=== PATIENT | male | born 1955 | race Caucasian/White ===

== ENCOUNTER 2020-06-01 14:47 | Inpatient (IN) | payer MEDICARE, MEDICAID, SELFPAY ==
[2020-06-01] VITALS (7 sets, daily range): BP systolic 154–163; BP diastolic 93–104; PULSE 87–103; RESP 16–20; TEMP 36.9–38.2; O2SAT 95–99; BMI 27.3
--- NOTE | 2020-06-01 16:04 | ECG_ITS ---
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 Measurements Intervals Kimberly Rate: 94 P: 66 KS: 207 QRS: 38 QRSD: 104 T: 60 QT: 300 QTc: 376 Interpretive Statements SINUS RHYTHM POSSIBLE LEFT ATRIAL ENLARGEMENT [-0.1mV P WAVE IN V1/V2] NONSPECIFIC T-WAVE ABNORMALITY Compared to ECG 03/03/2015 13:10:12 No significant changes Electronically Signed On 06-01-2020 20:09:50 CDT by Eldon Robins M.D. [id number]
--- NOTE | 2020-06-01 16:05 | W.ED.ABDPA2 ---
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 He has a history of gall bladder disease. He denies fever but has a low grade fever today. He is here to be evaluated for the pain. MD elicited complaint: abdominal pain Pertinent past history: other (gall bladder disease) Onset (ago): hour(s) (4) Pain Consistency: constant Location: Chest and RUQ Severity: severe Quality: sharp Radiation: RUQ Exacerbating factors: nothing Relieving factors: nothing Associated Symptoms: Reports nausea; Denies anorexia, belching, bloating, change in bowel habits, change in stool character, chills, coffee ground emesis, constipation, GI cramping, diarrhea, dyspepsia, dysuria, excessive flatus, fever(s), heartburn, hematochezia, hematuria, hematemesis, fecal incontinence, loose stools, melena, poor appetite, syncope and vomiting Review of Systems General: Reports: 10 or more systems reviewed and unremarkable except in HPI and below Const: Denies: fever(s) or chills Card: Denies: syncope GI: Reports: nausea; Denies: vomiting, hematemesis, coffee ground emesis, heartburn, diarrhea, constipation, bloating, GI cramping, belching, excessive flatus, fecal incontinence, change in bowel habits, change in stool character, hematochezia or melena : Denies: dysuria or hematuria PFSH ED PFSH: Medical History DM type 2 (diabetes mellitus, type 2) GERD (gastroesophageal reflux disease) Post-traumatic organic mental disorder Schizophrenia Seizure disorder Surgical History Hx of appendectomy Family History Other No significant family history Social History Smoking and tobacco status: current every day smoker cigarettes Packs smoked per day: 0.25 Alcohol intake: former Lives independently: No Household members: other Housing: Other Details: senior living Marital status: Number of children: 2 Current occupational status: disabled Physical Exam Const: COMMON NORMALS: no acute distress, average body habitus, patient oriented x3, no limitations, healthy appearing, alert and well nourished HENMT: COMMON NORMALS: normocephalic, atraumatic and moist oral mucous membranes HEAD & SCALP: normocephalic and atraumatic Neck/C-Spine: COMMON NORMALS: no meningeal signs and no JVD Chest: COMMONS NORMALS: normal inspection of the chest and normal palpation of entire chest wall Resp: COMMON NORMALS: normal respiratory effort, No retractions, No use of accessory muscles, clear to auscultation bilaterally and percussion normal AUSCULTATION: clear to auscultation bilaterally PERCUSSION: percussion normal Cardio: COMMON NORMALS: no JVD, regular rate, regular rhythm, S1 normal heart sound present, S2 normal heart sound present, No gallops present (Cardio), No clicks present (Cardio), No murmurs present (Cardio), No rub (Cardio) and Peripheral pulses 2+ throughout RATE: regular rate RHYTHM: regular rhythm HEART SOUNDS: S1 normal heart sound present and S2 normal heart sound present PERIPHERAL PULSES: Peripheral pulses 2+ throughout GI: COMMON NORMALS: Normal to inspection, nondistended, normoactive bowel sounds present, Soft to palpation, No hepatosplenomegaly present, no masses and no bruits PALPATION: Yes Soft to palpation, Yes Tenderness to palpation present (GI) Details: RUQ and Yes No hepatosplenomegaly present Extremity: COMMON NORMALS: normal to inspection, full ROM, capillary refill normal, no calf tenderness and no pedal edema Neuro: COMMON NORMALS: patient oriented x3 SENSORIUM/ORIENTATION: Yes alert MENINGEAL SIGNS: Yes no meningeal signs Course Consultations: Consultation #1: Discussed the patient and clinical findings with Dr. Suero, surgeon and he advised that we admit the patient to the hospitalist service and he would evaluate in the hospital Time: 17:35 Consultation #2: Discussed the patient with Dr. Virgen, hospitalist and he kindly accepted the patient to his service. 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 Evaluation in the ED is consistent with acute calculous cholecystitis. He is not septic. Because of penicillin allergies, he was given IV levofloxacin and metronidazole. In the ED. He is admitted to the hospital for further evaluation by the surgeon and management. He remained stable in the ED. Lab Data: Labs: Lab Results 06/01/20 06/01/20 06/01/20 Range/Units 15:16 15:16 15:16 WBC 20.2 H (4.0-10.0) 10^3/ uL RBC 4.58 (4.1-5.3) 10^6/u L Hgb 14.4 (11.7-16.6) g/dL Hct 43.2 (42.0-52.0) % MCV 94.3 H (80-94) fL MCH 31.4 (28.0-34.0) pg MCHC 33.3 (30.0-36.0) g/dL RDW 13.2 (12.1-15.1) % Plt Count 166 (130-400) 10^3/c mm MPV 11.5 H (7.4-10.4) fL Neut % (Auto) 85.2 % Lymph % (Auto) 7.2 % Mason % (Auto) 6.3 % Eos % (Auto) 0.0 % Baso % (Auto) 0.3 % Neut # (Auto) 17.17 H (1.8-7.7) 10^3/u L Lymph # (Auto) 1.5 (0.8-4.8) 10^3/u L Mason # (Auto) 1.3 H (0.2-0.9) 10^3/u L Eos # (Auto) 0.0 (0.0-0.8) 10^3/u L Baso # (Auto) 0.1 (0.0-0.1) 10^3/u L Nucleated RBC % (a uto) 0 % Nucleated RBCs # 0.0 /100WBC PT (12.1-14.9) SECO NDS INR (0.8-1.2) APTT (23.9-36.7) SECO NDS Sodium Cancelled Potassium Cancelled Chloride Cancelled Carbon Dioxide Cancelled Anion Gap Cancelled BUN Cancelled Creatinine Cancelled GFR Calculation Cancelled Glucose Cancelled Calculated Osmolal ity Cancelled Calcium Cancelled Total Bilirubin Cancelled AST Cancelled ALT Cancelled Alkaline Phosphata se Cancelled Troponin T Baselin e Cancelled NT-Pro-B Natriuret Pep Cancelled Total Protein Cancelled Albumin Cancelled Globulin Cancelled Lipase Cancelled 06/01/20 06/01/20 06/01/20 Range/Units 16:44 16:44 16:44 WBC (4.0-10.0) 10^3/ uL RBC (4.1-5.3) 10^6/u L Hgb (11.7-16.6) g/dL Hct (42.0-52.0) % MCV (80-94) fL MCH (28.0-34.0) pg MCHC (30.0-36.0) g/dL RDW (12.1-15.1) % Plt Count (130-400) 10^3/c mm MPV (7.4-10.4) fL Neut % (Auto) % Lymph % (Auto) % Mason % (Auto) % Eos % (Auto) % Baso % (Auto) % Neut # (Auto) (1.8-7.7) 10^3/u L Lymph # (Auto) (0.8-4.8) 10^3/u L Mason # (Auto) (0.2-0.9) 10^3/u L Eos # (Auto) (0.0-0.8) 10^3/u L Baso # (Auto) (0.0-0.1) 10^3/u L Nucleated RBC % (a uto) % Nucleated RBCs # /100WBC PT 15.50 H (12.1-14.9) SECO NDS INR 1.19 (0.8-1.2) APTT 37.5 H (23.9-36.7) SECO NDS Sodium 136 Potassium 3.7 Chloride 98 Carbon Dioxide 26 Anion Gap 15.7 BUN 12 Creatinine 0.8 GFR Calculation 98.0 Glucose 133 H Calculated Osmolal ity 284 L Calcium 9.2 Total Bilirubin 0.7 AST 51 H ALT 22 Alkaline Phosphata se 85 Troponin T Baselin e 14 NT-Pro-B Natriuret Pep 907 H Total Protein 7.0 Albumin 4.3 Globulin 2.7 Lipase 12 L Imaging Data ^: CXR: Attestation: I personally reviewed and interpreted this imaging study as follows: Radiologist's impression: [address] [address] XRay Report Signed Patient: Etelvina Glasgow #: [id number] : 8Acct#:[id number] Age/Sex: 64 / MADM Date: 06/01/20 Loc: [facility] [place]/Bed: [place] Attending Dr: Tucker Virgen MD Ordering Provider/Ordering MD: Denisse Guerrero MD, [facility] Date of Service: 06/01/20 Procedure(s): XR chest 1V portable [id number] Accession Number(s): [id number] Report Number: [id number] PROCEDURE INFORMATION: Exam: XR Chest Exam date and time: 06/01/2020 4:43 PM Age: 64 years old Clinical indication: Chest pain; Additional info: Cp TECHNIQUE: Imaging protocol: XR of the chest. Views: 1 view. COMPARISON: CR Chest 1 [place] [id number] 03/03/2015 1:14 PM FINDINGS: Lungs: No significant airspace disease. Pleural spaces: Questionable small right pleural effusion. Heart/Mediastinum: Cardiac silhouette upper limits of normal in size. Diaphragm: Chronic asymmetric elevation of the right hemidiaphragm. Bones/joints: Osteopenia and degenerative change. Gastrointestinal tract: Bowel dilatation and colonic interposition. XR/XR chest 1V portable [id number] IMPRESSION: 1. Chronic asymmetric elevation of the right hemidiaphragm with questionable small right pleural effusion. 2. Bowel dilatation and colonic interposition. Dictated By:Werner Mcallister MD Signed By:Werner Mcallister MDSigned Date/Time:06/02/20708 DD/ 7 CT Abd/Pel: Attestation: I personally reviewed and interpreted this imaging study as follows: Radiologist's impression: Glad to Have You[address] [place] [address] CT Scan Report Signed Patient: Etelvina Glasgow #: [id number] : 8Acct#:[id number] Age/Sex: 64 / MADM Date: 06/01/20 Loc: [facility]/Bed: Attending Dr: Ordering Provider/Ordering MD: Denisse Guerrero MD, [facility] Date of Service: 06/01/20 Procedure(s): CT abdomen pelvis wo con [id number] Accession Number(s): [id number] Report Number: [id number] PROCEDURE INFORMATION: Exam: CT Abdomen And Pelvis Without Contrast Exam date and time: 06/01/2020 4:55 PM Age: 64 years old Clinical indication: Other: Diarrhea; Abdominal pain; Other: Central; Prior surgery; Surgery type: Appy TECHNIQUE: Imaging protocol: Computed tomography of the abdomen and pelvis without contrast. Radiation optimization: All CT scans at this facility use at least one of these dose optimization techniques: automated exposure control; mA and/or kV adjustment per patient size (includes targeted exams where dose is matched to clinical indication); or iterative reconstruction. COMPARISON: No relevant prior studies available. RADIATION DOSE METRICS: Total DLP (mGy-cm): 1321.43 FINDINGS: Limitations: The absence of intravenous contrast lessens the sensitivity of this study for solid organ abnormalities. Lungs: There is mild dependent atelectasis at the right lung base. Pleural spaces: There is a small right pleural effusion. Liver: There is no focal abnormality within the liver. Gallbladder and bile ducts: Multiple calcified gallstones are present. There is moderate gallbladder wall thickening and there is pericholecystic stranding which suggests possibility of acute cholecystitis. Correlation with clinical findings is suggested. Pancreas: The pancreas is normal. Spleen: The spleen is normal. Adrenal glands: The adrenal glands are normal. Kidneys and ureters: The kidneys are normal. There is no evidence of hydronephrosis. There is no evidence of renal or ureteral calcifications. Stomach and bowel: There is no evidence of colitis/diverticulitis. Appendix: Not identified Intraperitoneal space: There is some minimal free fluid in the cul-de-sac. Retroperitoneal space: There is some minimal fluid along Gerota's fascia on the right and in the right pericolic gutter. Vasculature: There is mild atherosclerotic calcification of the coronary arteries. The aorta demonstrates mild atherosclerotic calcification. There is no evidence of an abdominal aortic aneurysm. Lymph nodes: Unremarkable. No enlarged lymph nodes. Urinary bladder: Unremarkable as visualized. Reproductive: Unremarkable as visualized. Bones/joints: There is focal sclerotic focus in the left inferior pubic ramus, likely a benign bone island. Soft tissues: There is right inguinal hernia containing only fat CT/CT abdomen pelvis wo con [id number] IMPRESSION: Cholelithiasis and acute cholecystitis. Radiation Dose CTDIVOL = (mGy): DLP = 1321.43 (mGy-cm) Dictated By:Humberto Andrea Signed By:Wong Andreaigned Date/Time:06/01/201719 DD/ 1719 EKG Data ^: EKG 1: Attestation: I personally reviewed and interpreted this EKG as follows: EKG interpretation date: 06/01/20 EKG interpretation time: 16:28 Prior EKG tracings: not available for review Interpretation: sinus rhythm HR [address] changes EKG 2: Attestation: I personally reviewed and interpreted this EKG as follows: EKG interpretation date: 06/01/20 EKG interpretation time: 18:32 Prior EKG tracings: available for review Interpretation: sinus rhythm HR [address] changes No significant changes from earlier today. Discharge Plan Discharge Patient Disposition: Admitted As Inpatient Admit Provider: Tucker Virgen Clinical Impression: Acute calculous cholecystitis Condition: Stable Discharge Orders: Discharge Order (Routine); Ordered 06/04/20 Ordered By: Tucker Virgen Discharge Diet: Advance as tolerated, Diabetic, Low Fat and Full LIquid Coding Level of Care Code ED Monotype Setter for [facility] Kelle
[2020-06-01 16:12] LABS: Basophils # 0.1 10^3/uL (0.0-0.1); Basophils % 0.3 %; Hematocrit 43.2 % (42.0-52.0); Hemoglobin 14.4 g/dL (11.7-16.6); Lymphocytes # 1.5 10^3/uL (0.8-4.8); Lymphocytes % 7.2 %; Mean Corpuscular HGB Conc 33.3 g/dL (30.0-36.0); Mean Corpuscular Hemoglobin 31.4 pg (28.0-34.0); Mean Corpuscular Volume 94.3 fL (80-94); Mean Platelet Volume 11.5 fL (7.4-10.4); Monocytes # 1.3 10^3/uL (0.2-0.9); Monocytes % 6.3 %; Neutrophils # 17.17 10^3/uL (1.8-7.7); Neutrophils % 85.2 %; Nucleated Red Blood Cells % 0 %; Platelet Count 166 10^3/cmm (130-400); Red Blood Count 4.58 10^6/uL (4.1-5.3); Red Cell Distribution Width 13.2 % (12.1-15.1); White Blood Count 20.2 10^3/uL (4.0-10.0)
--- NOTE | 2020-06-01 16:22 | PC.PHAR ---
medication entered is from pts mar printed on 05/13/20-called [facility] [employer] [phone] [employer] to verify dose and times given no answer
--- NOTE | 2020-06-01 16:45 | CTR_ITS ---
PROCEDURE INFORMATION: Exam: CT Abdomen And Pelvis Without Contrast Exam date and time: 06/01/2020 4:55 PM Age: 64 years old Clinical indication: Other: Diarrhea; Abdominal pain; Other: Central; Prior surgery; Surgery type: Appy TECHNIQUE: Imaging protocol: Computed tomography of the abdomen and pelvis without contrast. Radiation optimization: All CT scans at this facility use at least one of these dose optimization techniques: automated exposure control; mA and/or kV adjustment per patient size (includes targeted exams where dose is matched to clinical indication); or iterative reconstruction. COMPARISON: No relevant prior studies available. RADIATION DOSE METRICS: Total DLP (mGy-cm): 1321.43 FINDINGS: Limitations: The absence of intravenous contrast lessens the sensitivity of this study for solid organ abnormalities. Lungs: There is mild dependent atelectasis at the right lung base. Pleural spaces: There is a small right pleural effusion. Liver: There is no focal abnormality within the liver. Gallbladder and bile ducts: Multiple calcified gallstones are present. There is moderate gallbladder wall thickening and there is pericholecystic stranding which suggests possibility of acute cholecystitis. Correlation with clinical findings is suggested. Pancreas: The pancreas is normal. Spleen: The spleen is normal. Adrenal glands: The adrenal glands are normal. Kidneys and ureters: The kidneys are normal. There is no evidence of hydronephrosis. There is no evidence of renal or ureteral calcifications. Stomach and bowel: There is no evidence of colitis/diverticulitis. Appendix: Not identified Intraperitoneal space: There is some minimal free fluid in the cul-de-sac. Retroperitoneal space: There is some minimal fluid along Gerota's fascia on the right and in the right pericolic gutter. Vasculature: There is mild atherosclerotic calcification of the coronary arteries. The aorta demonstrates mild atherosclerotic calcification. There is no evidence of an abdominal aortic aneurysm. Lymph nodes: Unremarkable. No enlarged lymph nodes. Urinary bladder: Unremarkable as visualized. Reproductive: Unremarkable as visualized. Bones/joints: There is focal sclerotic focus in the left inferior pubic ramus, likely a benign bone island. Soft tissues: There is right inguinal hernia containing only fat CT/CT abdomen pelvis wo con [id number] IMPRESSION: Cholelithiasis and acute cholecystitis. Radiation Dose CTDIVOL = (mGy): DLP = 1321.43 (mGy-cm)
[2020-06-01] MEDS: metroNIDAZOLE IV 500 MG/100 ML PREMIX 100 MG IV (17:36)
[2020-06-01 17:39] LABS: Troponin(5th) Baseline 14 ng/L (0-15)
[2020-06-01 17:40] LABS: Alanine Aminotransferase 22 U/L (0-41); Albumin Level 4.3 g/dL (3.5-5.2); Alkaline Phosphatase 85 IU/L (40-130); Anion Gap 15.7 (5-19); Aspartate Amino Transferase 51 U/L (0-40); Blood Urea Nitrogen 12 mg/dL (8-23); Calcium 9.2 mg/dL (8.5-10.5); Carbon Dioxide 26 mmol/L (22-29); Chloride 98 mmol/L (98-107); Globulin 2.7 g/dL (1.3-4.6); Glucose 133 mg/dL (65-115); Lipase 12 U/L (13-60); NT Pro B Type Natriuretic Pept 907 pg/mL (0-125); Osmolality Calculated 284 mOsm/kg (285-295); Potassium 3.7 mmol/L (3.5-5.1); Sodium 136 mmol/L (136-145); Total Bilirubin 0.7 mg/dL (0.15-1.2)
[2020-06-01] MEDS: levofloxacin-dextrose 5 % 750 MG/150 ML PREMIX 100 MG IV (17:44)
--- NOTE | 2020-06-01 18:04 | ECG_ITS ---
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 Measurements Intervals Mellen Rate: 98 P: 58 MI: 184 QRS: 34 QRSD: 93 T: 64 QT: 332 QTc: 425 Interpretive Statements SINUS RHYTHM WITH SINUS ARRHYTHMIA NONSPECIFIC T-WAVE ABNORMALITY Compared to ECG 06/01/2020 16:28:18 No significant changes Electronically Signed On 06-01-2020 20:13:33 CDT by Eldon Robins M.D. [id number]
--- NOTE | 2020-06-01 18:29 | P.CONIM_ITS ---
Providers/Reason For Consult Consulting Physican/Specialty*: Alfonso Suero MD Reason for Consult*: Acute cholecystitis Requesting Physcian: Dr. Guerrero Primary Care Provider: Sourav Weiss MD History of Present Illness History of Present Illness Chief Complaint: My chest hurts History of present illness: This is a pleasant 64 years old gentleman with associated medical comorbidities with history of diabetes mellitus type II, epilepsy, hyperlipidemia,GERD and schizophrenia. Presents to the emergency department with worsening chest pain and some discomfort towards the right side of the abdomen over the past 3 days or so. Limited history taking from the patient yet patient denies any other constitutional symptoms at the moment, further work-up in the emergency department showed that the patient does have an acute calculus cholecystitis CT scan findings Gallbladder and bile ducts: Multiple calcified gallstones are present. There is moderate gallbladder wall thickening and there is pericholecystic stranding which suggests possibility of acute cholecystitis On blood work patient was found to have leukocytosis of 20,000 and normal bilirubin. On further evaluation the emergency department room #2 patient overall started feeling better,Fever has been reported to be 100.8. General surgery was consulted for further evaluation and potential intervention Review of Systems General: Reports: 10 or more systems reviewed and unremarkable except in HPI and below Meds/Allergies Home Medications and Allergies Home Medications Medication Instructions Recorded Confirmed Last Taken Type albuterol sulfate [Ventolin HFA] 2 puff INHALATION Q6H PRN 06/01/20 06/01/20 Unknown History ascorbic acid (vitamin C) [Vitamin 500 mg PO PRN 06/01/20 06/01/20 Unknown History C] atorvastatin 10 mg PO DAILY@06/01/20 06/01/20 Unknown History dextromethorphan-guaifenesin 5 ml PO . DIRECTED PRN 06/01/20 06/01/20 Unknown History [Robafen DM] diphenhydramine HCl [Banophen] 25 mg PO Q6H PRN 06/01/20 06/01/20 Unknown History lamotrigine 150 mg PO BID@,06/01/20 06/01/20 Unknown History loratadine 10 mg PO DAILY@08 06/01/20 06/01/20 Unknown History metformin 1,000 mg PO BID@,06/01/20 06/01/20 Unknown History metoprolol tartrate 50 mg PO BID@06/01/20 06/01/20 Unknown History omega-3 fatty acids-vitamin E 1 cap PO BID@06/01/20 06/01/20 Unknown History [Fish Oil] pantoprazole 40 mg PO DAILY@06/01/20 06/01/20 Unknown History paroxetine HCl 40 mg PO DAILY@06/01/20 06/01/20 Unknown History quetiapine 25 mg PO DAILY@06/01/20 06/01/20 Unknown History quetiapine 300 mg PO DAILY@06/01/20 06/01/20 Unknown History sitagliptin [Januvia] 50 mg PO DAILY@06/01/20 06/01/20 Unknown History Allergies Allergy/AdvReac Type Severity Reaction Status Date / Time Penicillins Allergy ALGY-Rash Verified 06/01/20 18:34 Current Medications Current Medications Generic Name Dose Route Start Last Admin Trade Name Freq PRN Reason Stop Dose Admin Levofloxacin/Dextrose 750 mg in 150 mls @ 100 mls/hr 06/01/20 17:25 06/01/20 17:44 Levaquin-D5w IV 06/01/20 18:54 100 mls/hr ONCE ONE Administration Protocol PFSH Acute PFSH: Medical History DM type 2 (diabetes mellitus, type 2) GERD (gastroesophageal reflux disease) Post-traumatic organic mental disorder Schizophrenia Seizure disorder Surgical History Hx of appendectomy Family History Other No significant family history Social History Smoking and tobacco status: current every day smoker cigarettes Packs smoked per day: 0.25 Alcohol intake: former Substance/Drug Use: never Lives independently: No Household members: other Housing: Other Details: detention Marital status: Number of children: 2 Current occupational status: disabled Vitals/I&O/Wt Last Vital Signs Temp 100.8 F H 06/01/20 15:24 Pulse 103 H 06/01/20 18:04 Resp 16 06/01/20 18:04 BP 156/104 06/01/20 18:04 Pulse Ox 97 06/01/20 18:04 Weight last 48 hrs Weight 175 lb Physical Exam Narrative: EXAM NARRATIVE: Patient is conscious alert oriented X3 BMI 27.4 Head and neck examination PERRLA no masses no cervical lymphadenopathy no jaundice Cardiac examination audible S1-S2 no murmurs no gallops no arrhythmias Chest is clear bilateral,abscence of Rhonchi or wheezes,no surgical emphysema Abdomen nontender Except on deep palpation of the right upper quadrant nondistended soft no organomegaly guarding or rigidity/no signs of peritonitis Extremities no cyanosis no clubbing no edema A&P Assessment and plan (1) Acute calculous cholecystitis: After history taking physical examination and reviewing the chart and images with my personal interpretation of the CT scan of the abdomen and pelvis I did discuss with the patient the following potential options; 1-Laparoscopic cholecystectomy possible open with a higher chance of conversion to open giving the fact that the patient had passed 48 to 72 hours of his symptoms with the potential increased risk of biliary injury and conversion to open. 2-Conservative measures in the form of broad-spectrum IV antibiotics and follow on clinical progress 3-Image guided cholecystostomy tube placement with the plan for interval cholecystectomy in 4 to 6 weeks We will continue coordinating care with Dr. Virgen and follow on the patient's clinical progress and follow on the a.m. labs Apparently the patient does have a power of shoe dresser as Dr. Virgen just informed me and we would be reaching out to clarify the picture and help in the decision making for the patient's best interest.We will follow on the ultrasound imaging studies and will order coags in case that image guided interventional radiology is decided upon. Thank you for consulting general surgery to participate taking care Status: Acute Consult Attestations Medical Necessity Statement: Inpatient hospitalization for IV fluid resuscitation, broad-spectrum antibiotics and potential intervention Time Spent in Patient Care: (>than 50% of time spent in counselling and/or direct pt care on unit) . 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
[2020-06-01 19:15] LABS: Lactate (Lactic Acid level) 1.5 mmol/L (0.5-2.2)
--- NOTE | 2020-06-01 19:15 | P.HP_ITS ---
Providers/Chief Complaint Admitting Physician: Tucker Virgen Primary Care Provider: Sourav Weiss MD Chief Complaint: RUQ PAIN History of Present Illness Pleasant 64-year-old gentleman with history of seizure disorder, posttraumatic organic affective disorder, schizophrenia, unstoppable social situations, diabetes, GERD, current smoker is brought over from [facility] where he is a long-term resident under guardianship of Mr. Darren Boyd, due to complaint of 3 days of worsening upper abdominal/lower chest pain, more in the right, but also on the left, nausea, episodes of vomiting, poor oral intake. He states that he did receive his morning medications today. In ER he is noted with low-grade fever, temperature 100.8, leukocytosis, 20.2, mostly neutrophilic, with sinus ta chycardia, 99, BP 159/93, respirate 18, saturation 95% on room air. Metabolic panel mostly unremarkable apart from glucose 133, AST 51, BNP 907. Lipase is low at 12. First troponin is 14. EKG with sinus tachycardia, nonspecific changes. CT abdomen pelvis shows cholelithiasis and acute cholecystitis. Right upper quadrant ultrasound is pending. In ER he has had ordered a dose of Levaquin and Flagyl. Surgery is consulted. He himself is currently feeling a little bit better. Pain at rest appears to have abated. mill tender second operator on palpation, however. Denies chest pain or pressure. Denies diarrhea or abdominal pain elsewhere. He seems to have somewhat limited understanding as to the findings so far. He tells me he lives in the correction setting with a roommate. He dresses, ambulates, feeds himself unassisted. [facility] staff notes that he otherwise has been at baseline state of health. Highest temperature today head was 99.5. At the facility CODE STATUS is listed as full code. Review of Systems Const: Reports: change in appetite; Denies: fever(s), chills, body aches or malaise Eyes: Denies: change in vision or eye redness ENMT: Denies: throat pain, oral sores or ear or mastoid pain Card: Denies: chest pain, edema, pre-syncope or dyspnea on exertion Resp: Denies: dyspnea, productive cough, change in phlegm color or hemoptysis GI: Reports: abdominal pain, nausea and vomiting; Denies: diarrhea, constipation, hematochezia or melena : Denies: flank pain, difficulty urinating, urinary frequency or hematuria Musc: Denies: back pain, joint swelling or joint redness Skin/Breast: Denies: rash, sores or new lesions Neuro: Denies: headache(s), numbness in extremities, weakness in extremities, dizziness, confusion or seizure-like activity Endo: Denies: polyuria or polydipsia Oj/Lymph: Denies: easy bleeding or purpura All/Imm: Denies: urticaria, throat swelling or tongue swelling Medications/Allergies Home Medications Medication Instructions Recorded Confirmed Last Taken Type albuterol sulfate [Ventolin HFA] 2 puff INHALATION Q6H PRN 06/01/20 06/01/20 Unknown History ascorbic acid (vitamin C) [Vitamin 500 mg PO PRN 06/01/20 06/01/20 Unknown History C] atorvastatin 10 mg PO DAILY@06/01/20 06/01/20 Unknown History dextromethorphan-guaifenesin 5 ml PO . DIRECTED PRN 06/01/20 06/01/20 Unknown History [Robafen DM] diphenhydramine HCl [Banophen] 25 mg PO Q6H PRN 06/01/20 06/01/20 Unknown History lamotrigine 150 mg PO BID@06/01/20 06/01/20 Unknown History loratadine 10 mg PO DAILY@06/01/20 06/01/20 Unknown History metformin 1,000 mg PO BID@06/01/20 06/01/20 Unknown History metoprolol tartrate 50 mg PO BID@06/01/20 06/01/20 Unknown History omega-3 fatty acids-vitamin E 1 cap PO BID@06/01/20 06/01/20 Unknown History [Fish Oil] pantoprazole 40 mg PO DAILY@06/01/20 06/01/20 Unknown History paroxetine HCl 40 mg PO DAILY@06/01/20 06/01/20 Unknown History quetiapine 25 mg PO DAILY@06/01/20 06/01/20 Unknown History quetiapine 300 mg PO DAILY@06/01/20 06/01/20 Unknown History sitagliptin [Januvia] 50 mg PO DAILY@06 06/01/20 06/01/20 Unknown History Allergies Allergy/AdvReac Type Severity Reaction Status Date / Time Penicillins Allergy ALGY-Rash Verified 06/01/20 18:34 PFSH Acute PFSH: Medical History DM type 2 (diabetes mellitus, type 2) GERD (gastroesophageal reflux disease) Post-traumatic organic mental disorder Schizophrenia Seizure disorder Surgical History Hx of appendectomy Family History Other No significant family history Social History Smoking and tobacco status: current every day smoker cigarettes Packs smoked per day: 0.25 Alcohol intake: former Substance/Drug Use: never Lives independently: No Household members: other Housing: Other Details: [facility] Marital status: Number of children: 2 Current occupational status: disabled Vitals/I&O/Wt Last Vital Signs Temp 100.8 F H 06/01/20 15:24 Pulse 99 06/01/20 19:07 Resp 18 06/01/20 19:07 BP 159/93 06/01/20 19:07 Pulse Ox 95 06/01/20 19:07 06/01/20 06/01/20 06/01/20 06:59 14:59 22:59 Intake Total 100 / 100 Balance 100 / 100 Weight last 48 hrs Weight 79.379 kg Physical Exam Const: COMMON NORMALS: no acute distress, patient oriented x3 and alert GENERAL APPEARANCE: cooperative ORIENTATION/CONSCIOUSNESS: Yes awake OTHER: Does not have good insight or understanding as to what is causing his symptoms despite discussion with ER physician and surgeon. Discussed with him again regarding clinical and imaging findings. HENMT: COMMON NORMALS: oropharynx normal Neck/C-Spine: COMMON NORMALS: no JVD Resp: COMMON NORMALS: normal respiratory effort and clear to auscultation bilaterally AUSCULTATION: clear to auscultation bilaterally Cardio: COMMON NORMALS: no JVD, regular rhythm, S1 normal heart sound present, S2 normal heart sound present and No murmurs present (Cardio) RHYTHM: regular rhythm HEART SOUNDS: S1 normal heart sound present and S2 normal heart sound present GI: COMMON NORMALS: Normal to inspection, nondistended, normoactive bowel sounds present and Soft to palpation PALPATION: Yes Soft to palpation and Yes Tenderness to palpation present (GI) (RUQ>LUQ) Extremity: COMMON NORMALS: no joint enlargement and no pedal edema Neuro: COMMON NORMALS: patient oriented x3 and moves all extremities Skin: COMMON NORMALS: no rashes or lesions noted GENERAL SKIN EXAM: no rashes or lesions noted Data : 06/01/20 15:16 06/01/20 16:44 Micro: Microbiology 06/01/20 18:40 Blood Culture - Preliminary Blood SPECIMEN COLLECTED 06/01/20 18:45 Blood Culture - Preliminary Blood SPECIMEN COLLECTED A&P Assessment and plan (1) Acute calculous cholecystitis: Discussed with him as well as his guardian. Discussed with surgery. Continue to biotics at this time. Reassess in the morning with regards to additional steps and timing of possible surgery. Complete troponin and EKG series. Lower chest discomfort appears to be referred pain, so far troponin is normal. Tenderness mostly focusing in the right upper quadrant. Possibly some discomfort from vomiting. Concomitant sepsis with leukocytosis, sinus tachycardia, low-grade fever. Follow blood cultures. Cholangitis considered, does not appear to have acute cholangitis at this time. Follow up RUQ US. Gentle IV hydration, although cautiously as his BNP is elevated, although clinically does not appear fluid overloaded at this time. Status: Acute Additional A&P Information Smoking addiction: Encourage cessation. Nicotine patch. Seizure disorder: Continue medications Posttraumatic affective organic disorder Schizophrenia Unstoppable social situations: [facility] denies any agitated, aggressive or any violent behavior. Diabetes: Sliding scale insulin, hold oral hypoglycemics for now. Attestations Medical Necessity Statement*: Admission of over 2 midnights is going to be needed versus management of acute cholecystitis, sepsis. Coding Level of Care Code Acute Pipe Fitter Marine for [facility] Diagnoses Acute calculous cholecystitis K80.00
[2020-06-01 19:16] LABS: Troponin 5 2HR 13.57 ng/L (0-15)
[2020-06-01 19:17] LABS: Troponin 5 2HR Delta -0.43 ABS# (0-10)
[2020-06-01 19:23] LABS: INR 1.19 (0.8-1.2)
[2020-06-01 19:24] LABS: Partial Thromboplastin Time 37.5 SECONDS (23.9-36.7)
[2020-06-01 19:50] LABS: Add Urine Microscopic? YES; Bilirubin Urine 1+ (Negative); Blood Urine 2+ (Negative); Glucose Urine UA Norm (Normal); Ketones Urine 1+ (Negative); Leukocyte Esterase Urine Negative (Negative); Nitrate Urine Negative (Negative); Protein Urine 2+ (Negative); Urine Appearance Clear (CLEAR); Urine Color Dark Yellow (Yellow); Urobilinogen Urine 1 mg/dL (Negative); pH Urine 7 (5-7)
[2020-06-01 19:52] LABS: Add Urine Culture? Yes; Bacteria Urine TRACE /hpf; Hyaline Casts Urine 0-4 /lpf; RBC Urine 25-40 /hpf (0-2); Squamous Epithelial Cell Urine 0-4 /hpf (0-5); WBC Urine 0-4 /hpf (0-5)
[2020-06-01] MEDS: nicotine 14 mg Patch 1 PATCH TRANSDERMA (21:31)
[2020-06-01] MEDS: lamoTRIgine 100 mg Tablet 150 MG PO (21:32)
[2020-06-01] MEDS: PARoxetine 20 mg Tablet 40 MG PO (21:32)
[2020-06-01] MEDS: metoprolol tartrate 50 mg Tablet PO (21:33)
[2020-06-01] MEDS: heparin 5,000 unit/mL INJ 1 mL 5000 UNIT SUBCUT (21:33)
[2020-06-01] MEDS: famotidine 20 mg/2 mL INJ IVP (21:34)
[2020-06-01] MEDS: lactated ringers 1,000 ML 75 ML IV (21:44)
[2020-06-01 22:54] LABS: Troponin 5 6HR 17.05 ng/L (0-15); Troponin 5 6HR Delta 3.05 ng/L (0-12)
[2020-06-02] VITALS (10 sets, daily range): BP systolic 130–153; BP diastolic 78–89; PULSE 75–96; RESP 16–18; TEMP 36.5–37.1; O2SAT 95–99
[2020-06-02] MEDS: metroNIDAZOLE IV 500 MG/100 ML PREMIX 100 MG IV ×3 (01:35→18:06)
--- NOTE | 2020-06-02 05:52 | P.PN_ITS ---
Subjective Subjective: Interval history: Per nursing report patient had adequate urine output and overall had a good night. No acute events overnight. Patient when asked he reports that he feels well and denies abdominal pain. Ultrasound bedside was just done, concern about soft tissue shadow in the gallbladder, pending final report. Medications: Reviewed: Yes Vitals/I&O/Wt Last Vital Signs Temp 97.7 F 06/02/20 03:37 Pulse 83 06/02/20 03:37 Resp 18 06/02/20 03:37 BP 145/89 06/02/20 03:37 Pulse Ox 96 06/02/20 03:37 06/01/20 06/01/20 06/02/20 14:59 22:59 06:59 Intake Total 100 / 100 150 / 250 Output Total 925 / 925 Balance 100 / 100 -775 / -675 Weight last 48 hrs Weight 164 lb 12.8 oz Weight 175 lb Physical Exam Narrative: EXAM NARRATIVE: Patient is conscious alert oriented X3 BMI 26 Head and neck examination PERRLA no masses no cervical lymphadenopathy no jaundice Cardiac examination audible S1-S2 no murmurs no gallops no arrhythmias Chest is clear bilateral,abscence of Rhonchi or wheezes,no surgical emphysema Abdomen nontender nondistended soft no organomegaly guarding or rigidity/no signs of peritonitis Extremities no cyanosis no clubbing no edema Data : 06/01/20 15:16 06/01/20 16:44 Micro: Microbiology 06/01/20 18:40 Blood Culture - Preliminary Blood SPECIMEN COLLECTED 06/01/20 18:45 Blood Culture - Preliminary Blood SPECIMEN COLLECTED A&P Assessment and plan (1) Acute calculous cholecystitis: Continue parenteral antimicrobial therapy Will follow on ultrasound final report if there is a potential concern about the soft tissue shadow that may raise suspicious of a neoplasm MRCP would be warranted Will Continue to follow on patient's clinical progress, seems to be responding well to conservative measures for now. We will follow on a.m. lab Thank you for consulting general surgery to participate taking care Status: Acute Attestations Medical Necessity Statement*: Continue inpatient hospitalization for ongoing medical management and antimicrobial therapy and potential surgical intervention Time Spent in Patient Care: (>than 50% of time spent in counselling and/or direct pt care on unit) . Coding Level of Care Code Acute Formal Service Waiter for [facility] Diagnoses Acute calculous cholecystitis K80.00
--- NOTE | 2020-06-02 06:00 | US_ITS ---
WS: [id number] RIGHT UPPER QUADRANT ULTRASOUND HISTORY: cholecystitis COMPARISON: CT 06/01/2020 Liver: 19.5 cm in length. Liver is moderately enlarged and poorly visualized. Diffuse mild hepatic st eatosis. No bile duct dilatation. Gallbladder: Gallbladder is normal. There is diffuse mild bladder wall thickening measuring up to 8 m m in diameter. Soft tissue adherent to the nondependent gallbladder wall measures 1.9 cm in diameter. No shadowing. There is a small amount of adjacent fluid. There is a stone present in the gallbladder . CBD: 0.6 cm Pancreas: Not visualized. Right kidney: 11.3 cm in length. Normal size and echogenicity. No hydronephrosis or mass. Aorta and IVC: Not visualized. No ascites. US/US gall bladder [id number] IMPRESSION: 1. Abnormal gallbladder. Gallbladder is contracted with diffuse wall thickenin g. Stones and tumefactive sludge are present. Findings are consistent with acut e cholecystitis. Compared to the CT from 06/01/2020 the gallbladder now appears partially contracted. 2. No bile duct dilatation.
[2020-06-02 06:21] LABS: Basophils % 0.2 %; Eosinophils # 0.1 10^3/uL (0.0-0.8); Eosinophils % 0.4 %; Hematocrit 41.3 % (42.0-52.0); Hemoglobin 13.5 g/dL (11.7-16.6); Lymphocytes # 1.6 10^3/uL (0.8-4.8); Lymphocytes % 11.5 %; Mean Corpuscular HGB Conc 32.7 g/dL (30.0-36.0); Mean Corpuscular Hemoglobin 31.8 pg (28.0-34.0); Mean Corpuscular Volume 97.4 fL (80-94); Mean Platelet Volume 10.1 fL (7.4-10.4); Monocytes % 7.1 %; Neutrophils # 11.47 10^3/uL (1.8-7.7); Neutrophils % 80.4 %; Nucleated Red Blood Cells % 0 %; Platelet Count 169 10^3/cmm (130-400); Red Blood Count 4.24 10^6/uL (4.1-5.3); Red Cell Distribution Width 13.2 % (12.1-15.1); White Blood Count 14.3 10^3/uL (4.0-10.0)
[2020-06-02 06:41] LABS: Alanine Aminotransferase 19 U/L (0-41); Albumin Level 3.8 g/dL (3.5-5.2); Alkaline Phosphatase 80 IU/L (40-130); Aspartate Amino Transferase 34 U/L (0-40); Blood Urea Nitrogen 10 mg/dL (8-23); Carbon Dioxide 28 mmol/L (22-29); Chloride 100 mmol/L (98-107); Globulin 3.1 g/dL (1.3-4.6); Glomerular Filtration Rate 114.3 mL/min (90-130); Glucose 102 mg/dL (65-115); Osmolality Calculated 285 mOsm/kg (285-295); Sodium 138 mmol/L (136-145); Total Bilirubin 0.7 mg/dL (0.15-1.2); Total Protein 6.9 g/dL (6.6-8.7)
[2020-06-02] MEDS: metoprolol tartrate 50 mg Tablet PO ×2 (08:41→20:29)
[2020-06-02] MEDS: lamoTRIgine 100 mg Tablet 150 MG PO ×2 (08:41→20:30)
[2020-06-02] MEDS: famotidine 20 mg/2 mL INJ IVP ×2 (08:50→20:30)
--- NOTE | 2020-06-02 08:52 | PC.NURSE ---
patient had pack of cigars in shirt pocket and manager video games in pants pocket. Electrolysis Engineer explained that we need to lock them up in pyxis and we will return them to him on discharge. patient agreed and handed them to singer songwriter. singer songwriter labeled them and placed them in the pyxis.
[2020-06-02] MEDS: lactated ringers 1,000 ML 75 ML IV (10:44)
--- NOTE | 2020-06-02 11:03 | PC.CHAP ---
Pastoral Care Encounter/Spiritual Assessment Type of Contact [] Declined core stacker visit [] Patient/Family/Request visit [] Outpatient visit [] Follow-up visit [] Physician referral [] Code/Alert [x] Routine visit [] Staff referral [] Actively dying [] Patient sleeping [] Family support [] [] Out of room [] Palliative care [] [x] Receiving care in room [] Pre-surgical visit [] Trauma [] Long length of stay [] ICU visit [] Other: Relational/Emotional Strength [] Patient feels connected with others/family/visitors/staff [] Distress [] Loneliness/isolation [] Abandonment Spirituality of Patient [x] Person of Casie [] Attends Voodoo of their Casie [x] Believes in Prayer [] Reads Bible or Scientologist materials [] There are Spiritual issues to be addressed Freezer Unloader Interventions [] Prayer [] Active listening [] Non-anxious presence [] Spiritual/emotional support [] Crisis/trauma care [] Spiritual counseling [] Bereavement support [] Provided bereavement packet [] Provided Bible/devotional materials [] Provided toy/stuffed animal, coloring book to patient or family member [] Provided Communion [] Anointing/[place] [] Salvation [] Completed spiritual assessment [] Other: Impact on Illness or Injury [] Angry [] Fearful [] Anxious [] Often cries [] Exhaustion [] Unable to work [] Unable to attend faith [] Unable to walk/stand [] Unable to read [] Unable to drive [] Unable to eat/drink [] Unable to sleep [] Unable to be with family [] Patient intubated [] Other: Summary Feels strong, happy. Was alert and ready to visit. Time spent with patient 3 minutes
--- NOTE | 2020-06-02 14:45 | PC.NURSE ---
Rcvd verbal order from Dr Suero for clear liquid diet. teletypewriter installer put order in.
--- NOTE | 2020-06-02 15:25 | PC.NURSE ---
Rcvd call from Saad AGUILA stating [facility] would like patient to have Covid test done prior to returning home. Saad is putting order in for Covid. Software Engineer Sales will collect test.
[2020-06-02 16:59] LABS: SARS Covid-2 Antigen Negative (Negative)
[2020-06-02] MEDS: levofloxacin-dextrose 5 % 750 MG/150 ML PREMIX 100 MG IV (18:05)
--- NOTE | 2020-06-02 18:21 | P.PN_ITS ---
Subjective Subjective: Interval history: This morning when I was seeing him he was doing all right. Lynn he could eat. Denied pain or discomfort. Abdominal pain had improved. Denies trouble breathing or chest pain. Vitals/I&O/Wt Last Vital Signs Temp 98.1 F 06/02/20 15:15 Pulse 82 06/02/20 15:15 Resp 18 06/02/20 15:15 BP 136/87 06/02/20 15:15 Pulse Ox 99 06/02/20 15:15 06/02/20 06/02/20 06/02/20 06:59 14:59 22:59 Intake Total 150 / 250 5 / 1175 0 2014 Output Total 925 / 925 Balance -775 / -675 1175 / 1175 840 2014 Weight last 48 hrs Weight 74.752 kg Weight 79.379 kg Physical Exam Const: COMMON NORMALS: no acute distress and alert GENERAL APPEARANCE: cooperative and comfortable ORIENTATION/CONSCIOUSNESS: Yes awake HENMT: COMMON NORMALS: oropharynx normal Neck/C-Spine: COMMON NORMALS: no JVD Resp: COMMON NORMALS: normal respiratory effort and clear to auscultation jose aterally AUSCULTATION: clear to auscultation bilaterally Cardio: COMMON NORMALS: no JVD, regular rhythm, S1 normal heart sound present, S2 normal heart sound present and No murmurs present (Cardio) RHYTHM: regular rhythm HEART SOUNDS: S1 normal heart sound present and S2 normal heart sound present GI: COMMON NORMALS: Normal to inspection, nondistended, normoactive bowel sounds present and Soft to palpation PALPATION: Yes Soft to palpation and Yes Tenderness to palpation present (GI) (Much better. Nearly resolved right upper quadrant tenderness.) Extremity: COMMON NORMALS: no joint enlargement and no pedal edema Neuro: COMMON NORMALS: moves all extremities SENSORIUM/ORIENTATION: Yes alert Skin: COMMON NORMALS: no rashes or lesions noted GENERAL SKIN EXAM: no rashes or lesions noted Data : 06/02/20 06:02 06/02/20 06:02 Micro: Microbiology 06/01/20 18:40 Blood Culture - Preliminary Blood SPECIMEN COLLECTED 06/01/20 18:45 Blood Culture - Preliminary Blood SPECIMEN COLLECTED A&P Assessment and plan (1) Acute calculous cholecystitis: Surgical reassessment appreciated. Overall he is doing better today. Possible sepsis improved. Fever so far abated. Leukocytosis down to 14.3. He is feeling better. He is willing to trial clear liquids as discussed with surgery. Continue antibiotics at this time. Reassess again tomorrow. RUQ US with noted abnormal gallbladder, gallbladder now appears contracted. Acute cholecystitis. Hold additional IV hydration for now. Monitor. Status: Acute Additional A&P Information Smoking addiction: Encourage cessation. Nicotine patch. Seizure disorder: Continue medications Posttraumatic affective organic disorder Schizophrenia Unstoppable social situations: senior living denies any agitated, aggressive or any violent behavior. Diabetes: Sliding scale insulin, hold oral hypoglycemics for now. Attestations Medical Necessity Statement*: Continue admission for assessment of management of acute cholecystitis, improving sepsis. Coding Level of Care Code Acute Transfer Station Operator for [facility] Diagnoses Acute calculous cholecystitis K80.00
[2020-06-02] MEDS: PARoxetine 20 mg Tablet 40 MG PO (20:29)
[2020-06-02] MEDS: nicotine 14 mg Patch 1 PATCH TRANSDERMA (20:30)
[2020-06-03] VITALS (10 sets, daily range): BP systolic 125–144; BP diastolic 77–88; PULSE 76–105; RESP 16–18; TEMP 36.3–37.3; O2SAT 95–96
[2020-06-03] MEDS: metroNIDAZOLE IV 500 MG/100 ML PREMIX 100 MG IV ×3 (01:11→18:20)
--- NOTE | 2020-06-03 06:17 | PM.PN ---
Subjective Subjective: Interval history: Patient tolerating well po intake and no complaints and overall feels better.Labs are still pending. Ultrasound gallbladder was done yesterday and acknowledged 1. Abnormal gallbladder. Gallbladder is contracted with diffuse wall thickening. Stones and tumefactive sludge are present. Findings are consistent with acute cholecystitis. Compared to the CT from 06/01/2020 the gallbladder now appears partially contracted. 2. No bile duct dilatation. Medications: Reviewed: Yes Vitals/I&O/Wt Last Vital Signs Temp 97.6 F 06/03/20 03:55 Pulse 81 06/03/20 03:55 Resp 18 06/03/20 03:55 BP 134/86 06/03/20 03:55 Pulse Ox 96 06/03/20 03:55 06/02/20 06/02/20 06/03/20 14:59 22:59 06:59 Intake Total 1175 / 1175 1090 / 2265 100 / 2365 Output Total 1200 / 1200 0 / 1200 Balance 1175 / 1175 -110 / 1065 100 / 1165 Weight last 48 hrs Weight 165 lb Weight 164 lb 12.8 oz Weight 175 lb Physical Exam Narrative: EXAM NARRATIVE: Patient is conscious alert oriented X3 BMI 26 Head and neck examination PERRLA no masses no cervical lymphadenopathy no jaundice Abdomen nontender nondistended soft no organomegaly guarding or rigidity/no signs of peritonitis Data : 06/02/20 06:02 06/02/20 06:02 Micro: Microbiology 06/01/20 18:40 Blood Culture - Preliminary Blood NEGATIVE TO DATE 06/01/20 18:45 Blood Culture - Preliminary Blood NEGATIVE TO DATE A&P Assessment and plan (1) Acute calculous cholecystitis: Continue parenteral antimicrobial therapy Will Continue to follow on patient's clinical progress, patient is responding well to conservative measures and will advance to full liquid diet. We will follow on a.m. lab Repeated physical examination Highly recommend to continue antimicrobial course upon discharge for 7 to 10 days We will plan for elective laparoscopic cholecystectomy is we will follow up on the patient as an outpatient Thank you for consulting general surgery to participate taking care Status: Acute Attestations Medical Necessity Statement*: Continue inpatient hospitalization for medical and surgical care and continue antimicrobial therapy till normalization of WBC count Time Spent in Patient Care: (>than 50% of time spent in counselling and/or direct pt care on unit). Coding Level of Care Code Acute Oracle Reports Developer for [facility] Fwd Diagnoses Acute calculous cholecystitis K80.00
[2020-06-03 06:19] LABS: Basophils % 0.3 %; Eosinophils # 0.1 10^3/uL (0.0-0.8); Eosinophils % 0.8 %; Lymphocytes # 1.2 10^3/uL (0.8-4.8); Lymphocytes % 9.8 %; Mean Corpuscular HGB Conc 32.5 g/dL (30.0-36.0); Mean Corpuscular Hemoglobin 31.4 pg (28.0-34.0); Mean Corpuscular Volume 96.6 fL (80-94); Mean Platelet Volume 10.2 fL (7.4-10.4); Monocytes # 0.9 10^3/uL (0.2-0.9); Monocytes % 7.2 %; Neutrophils # 9.68 10^3/uL (1.8-7.7); Neutrophils % 81.5 %; Nucleated Red Blood Cells % 0 %; Platelet Count 188 10^3/cmm (130-400); Red Blood Count 4.14 10^6/uL (4.1-5.3); White Blood Count 11.9 10^3/uL (4.0-10.0)
[2020-06-03 06:39] LABS: Alanine Aminotransferase 21 U/L (0-41); Alkaline Phosphatase 93 IU/L (40-130); Anion Gap 12.8 (5-19); Aspartate Amino Transferase 26 U/L (0-40); Blood Urea Nitrogen 11 mg/dL (8-23); Carbon Dioxide 28 mmol/L (22-29); Chloride 96 mmol/L (98-107); Globulin 3.4 g/dL (1.3-4.6); Glucose 111 mg/dL (65-115); Osmolality Calculated 276 mOsm/kg (285-295); Potassium 3.8 mmol/L (3.5-5.1); Sodium 133 mmol/L (136-145); Total Bilirubin 0.6 mg/dL (0.15-1.2); Total Protein 7.4 g/dL (6.6-8.7)
[2020-06-03] MEDS: metoprolol tartrate 50 mg Tablet PO ×2 (11:07→21:03)
[2020-06-03] MEDS: lamoTRIgine 100 mg Tablet 150 MG PO ×2 (11:08→21:02)
[2020-06-03] MEDS: famotidine 20 mg/2 mL INJ IVP ×2 (11:18→21:37)
[2020-06-03] MEDS: levofloxacin-dextrose 5 % 750 MG/150 ML PREMIX 100 MG IV (16:27)
--- NOTE | 2020-06-03 18:17 | PM.PN ---
Subjective Subjective: Interval history: Today he states he is doing all right. He says he has been told his white blood cell count is lower today, and he is happy that he is doing better. He will be trying full liquid diet today. Vitals/I&O/Wt Last Vital Signs Temp 98.3 F 06/03/20 15:13 Pulse 90 06/03/20 15:13 Resp 17 06/03/20 15:13 BP 133/84 06/03/20 15:13 Pulse Ox 96 06/03/20 15:13 06/03/20 06/03/20 06/03/20 06:59 14:59 22:59 Intake Total 100 / 2365 1180 / 1180 1050 / 2230 Output Total 0 / 1200 Balance 100 / 1165 1180 / 1180 1050 / 2230 Weight last 48 hrs Weight 74.843 kg Weight 74.752 kg Physical Exam Const: COMMON NORMALS: no acute distress and alert GENERAL APPEARANCE: cooperative and comfortable ORIENTATION/CONSCIOUSNESS: Yes awake HENMT: COMMON NORMALS: oropharynx normal Neck/C-Spine: COMMON NORMALS: no JVD Resp: COMMON NORMALS: normal respiratory effort and clear to auscultation bilaterally AUSCULTATION: clear to auscultation bilaterally Cardio: COMMON NORMALS: no JVD, regular rhythm, S1 normal heart sound present, S2 normal heart sound present and No murmurs present (Cardio) RHYTHM: regular rhythm HEART SOUNDS: S1 normal heart sound present and S2 normal heart sound present GI: COMMON NORMALS: Normal to inspection, nondistended, normoactive bowel sounds present and Soft to palpation PALPATION: Yes Soft to palpation and No Tenderness to palpation present (GI) Extremity: COMMON NORMALS: no joint enlargement and no pedal edema Neuro: COMMON NORMALS: moves all extremities SENSORIUM/ORIENTATION: Yes alert Skin: COMMON NORMALS: no rashes or lesions noted GENERAL SKIN EXAM: no rashes or lesions noted Data : 06/03/20 05:56 06/03/20 05:56 Micro: Microbiology 06/01/20 19:25 Urine Culture - Final Urine,Clean Catch 06/01/20 18:40 Blood Culture - Preliminary Blood NEGATIVE TO DATE 06/01/20 18:45 Blood Culture - Preliminary Blood NEGATIVE TO DATE A&P Assessment and plan (1) Acute calculous cholecystitis: Continue to improve. Leukocytosis trending down. Surgery would like to additionally monitor today, trial advancement to full liquid diet, and reassess labs in the morning. If continues to improve, consideration may be to discharge and follow-up on outpatient side after completion of antibiotic course for arrangements for elective cholecystectomy. RUQ US with noted abnormal gallbladder, gallbladder now appears contracted. Acute cholecystitis. Status: Acute Additional A&P Information Smoking addiction: Encourage cessation. Nicotine patch. Seizure disorder: Continue medications Posttraumatic affective organic disorder Schizophrenia Unstoppable social situations: intermediate denies any agitated, aggressive or any violent behavior. Diabetes: Sliding scale insulin, hold oral hypoglycemics for now. Attestations Medical Necessity Statement*: Continue admission for management of improving sepsis, acute cholecystitis, advancement of diet, reassessment condition, lab work in the morning and discharge planning and preparations. Coding Level of Care Code Acute Machine Tool Electrician for [facility] Diagnoses Acute calculous cholecystitis K80.00
[2020-06-03] MEDS: PARoxetine 20 mg Tablet 40 MG PO (21:03)
[2020-06-03] MEDS: nicotine 14 mg Patch 1 PATCH TRANSDERMA (21:04)
[2020-06-04] VITALS (8 sets, daily range): BP systolic 125–137; BP diastolic 80–90; PULSE 71–98; RESP 18–20; TEMP 36.2–37.1; O2SAT 94–97
[2020-06-04] MEDS: metroNIDAZOLE IV 500 MG/100 ML PREMIX 100 MG IV ×2 (01:41→10:21)
[2020-06-04 05:41] LABS: Basophils % 0.4 %; Eosinophils # 0.2 10^3/uL (0.0-0.8); Eosinophils % 1.5 %; Hematocrit 34.8 % (42.0-52.0); Hemoglobin 11.4 g/dL (11.7-16.6); Lymphocytes # 1.2 10^3/uL (0.8-4.8); Lymphocytes % 12.5 %; Mean Corpuscular HGB Conc 32.8 g/dL (30.0-36.0); Mean Corpuscular Hemoglobin 31.3 pg (28.0-34.0); Mean Corpuscular Volume 95.6 fL (80-94); Mean Platelet Volume 9.8 fL (7.4-10.4); Monocytes # 0.9 10^3/uL (0.2-0.9); Monocytes % 8.7 %; Neutrophils # 7.49 10^3/uL (1.8-7.7); Neutrophils % 76.4 %; Nucleated Red Blood Cells % 0 %; Platelet Count 194 10^3/cmm (130-400); Red Blood Count 3.64 10^6/uL (4.1-5.3); White Blood Count 9.8 10^3/uL (4.0-10.0)
[2020-06-04 06:06] LABS: Alanine Aminotransferase 20 U/L (0-41); Albumin Level 3.6 g/dL (3.5-5.2); Alkaline Phosphatase 105 IU/L (40-130); Anion Gap 11.5 (5-19); Aspartate Amino Transferase 25 U/L (0-40); Blood Urea Nitrogen 9 mg/dL (8-23); Calcium 8.4 mg/dL (8.5-10.5); Carbon Dioxide 27 mmol/L (22-29); Chloride 102 mmol/L (98-107); Globulin 2.9 g/dL (1.3-4.6); Glomerular Filtration Rate 114.3 mL/min (90-130); Glucose 120 mg/dL (65-115); Osmolality Calculated 284 mOsm/kg (285-295); Potassium 3.5 mmol/L (3.5-5.1); Sodium 137 mmol/L (136-145); Total Bilirubin 0.5 mg/dL (0.15-1.2); Total Protein 6.5 g/dL (6.6-8.7)
--- NOTE | 2020-06-04 06:59 | P.PN_ITS ---
Subjective Subjective: Interval history: Patient overall seems to be doing well and improving clinically. Lab work normalized including WBC count. No acute events overnight Medications: Reviewed: Yes Vitals/I&O/Wt Last Vital Signs Temp 98.7 F 06/04/20 04:00 Pulse 73 06/04/20 06:00 Resp 20 H 06/04/20 04:00 BP 131/85 06/04/20 04:00 Pulse Ox 96 06/04/20 04:00 06/03/20 06/03/20 06/04/20 14:59 22:59 06:59 Intake Total 1180 / 1180 1150 / 2330 100 / 2430 Output Total 400 / 400 Balance 1180 / 1180 750 / 1930 100 / 2030 Weight last 48 hrs Weight 165 lb Weight 165 lb Physical Exam Narrative: EXAM NARRATIVE: Patient is conscious alert oriented X3 BMI 26 Head and neck examination PERRLA no masses no cervical lymphadenopathy no jaundice Abdomen nontender nondistended soft no organomegaly guarding or rigidity/no signs of peritonitis Data : 06/04/20 04:56 06/04/20 04:56 Micro: Microbiology 06/01/20 19:25 Urine Culture - Final Urine,Clean Catch A&P Assessment and plan (1) Acute calculous cholecystitis: From surgical standpoint of view patient seems to be appropriate for discharge on oral antibiotics and follow-up with me at the surgery office for planned laparoscopic cholecystectomy Education about low-fat diet. Thank you for consulting general surgery to participate taking care Status: Acute Attestations Medical Necessity Statement*: Patient required inpatient hospitalization for medical and surgical care with particular focus on IV antibiotics Time Spent in Patient Care: less than 15 minutes (>than 50% of time spent in counselling and/or direct pt care on unit) . Coding Level of Care Code Acute Air Force Senior Officer for [facility] Fwd Diagnoses Acute calculous cholecystitis K80.00
--- NOTE | 2020-06-04 10:18 | PC.SOCIAL ---
*IMM UPDATE* User Support Specialist gave patient's legal guardian, Darren verbal IMM via phone [phone]. Verbalized understanding. 06/04/20 @ 1020 Initialed, dated, timed and placed in chart.
[2020-06-04] MEDS: lamoTRIgine 100 mg Tablet 150 MG PO (10:20)
[2020-06-04] MEDS: famotidine 20 mg/2 mL INJ IVP (10:20)
[2020-06-04] MEDS: metoprolol tartrate 50 mg Tablet PO (10:20)
--- NOTE | 2020-06-04 13:24 | PM.DCS ---
Discharge Providers Date of Admission: 06/01/20 17:52 Date of Discharge: June 04, 2020 Attending Provider at Admission: Tucker Virgen Attending Provider at Discharge: Tucker Virgen Primary Care Provider: Sourav Weiss MD Diagnoses at Discharge Discharge Diagnosis (1) Acute calculous cholecystitis: Status: Acute Reason for Visit Reason for Visit: RUQ PAIN Hospital Course Hospital Course Very pleasant 64-year-old gentleman was admitted and treated for acute cholecystitis, sepsis, after presenting with upper abdominal/lower chest pain, nausea, vomiting, poor appetite, and presentation with noted fever 100.8, leukocytosis 20.2. Sinus tachycardia. With noted cholelithiasis and acute cholecystitis on CT abdomen pelvis. He was assessed by surgery. Was treated with Levaquin and Flagyl, bowel rest initially, IV hydration, monitoring, and given resolution of sepsis continue to improvement of symptoms, normal liver parameters, and has been tolerating oral intake, recommendation is for follow-up with surgery in office after completion of antibiotic course for arrangements for elective cholecystectomy. Physical Exam Const: COMMON NORMALS: no acute distress and alert GENERAL APPEARANCE: cooperative and comfortable ORIENTATION/CONSCIOUSNESS: Yes awake OTHER: He is awake, alert, pleasant, conversant. In good spirits. Says he is feeling very well. Tolerating diet. No abdominal pain or discomfort. Tells me about plan to follow-up with the surgeon in clinic. Discussed with his guardian as well. HENMT: COMMON NORMALS: oropharynx normal Neck/C-Spine: COMMON NORMALS: no JVD Resp: COMMON NORMALS: normal respiratory effort and clear to auscultation bilaterally AUSCULTATION: clear to auscultation bilaterally Cardio: COMMON NORMALS: no JVD, regular rhythm, S1 normal heart sound present, S2 normal heart sound present and No murmurs present (Cardio) RHYTHM: regular rhythm HEART SOUNDS: S1 normal heart sound present and S2 normal heart sound present GI: COMMON NORMALS: Normal to inspection, nondistended, normoactive bowel sounds present and Soft to palpation PALPATION: Yes Soft to palpation and No Tenderness to palpation present (GI) Extremity: COMMON NORMALS: no joint enlargement and no pedal edema Neuro: COMMON NORMALS: moves all extremities SENSORIUM/ORIENTATION: Yes alert Skin: COMMON NORMALS: no rashes or lesions noted GENERAL SKIN EXAM: no rashes or lesions noted Discharge Data Data Completed and Pending: Completed Studies During Hospitalization Category Date Time Status CT abdomen pelvis wo con [id number] Urge nt Cat Scan 06/01/20 16:45 Completed XR chest 1V erick ble [id number] Stat Exams 06/01/20 16:04 Completed US gall bladder 7 [id number] Routine Ultrasound 06/02/20 06:00 Completed Pending at discharge Category Date Time Status Blood Culture Sta t Lab 06/01/20 18:40 Results COVID [SARS Covid -2 Antigen] Stat Lab 06/04/20 12:26 Received Occult Blood Stoo l [Immunochemical Fecal OCB] Routine Lab 06/01/20 19:11 Uncollected Labs from last 24 hours 06/04/20 06/04/20 06/04/20 12:26 04:56 04:56 WBC 9.8 RBC 3.64 L Hgb 11.4 L Hct 34.8 L MCV 95.6 H MCH 31.3 MCHC 32.8 RDW 13.0 Plt Count 194 MPV 9.8 Neut % (Auto) 76.4 Lymph % (Auto) 12.5 [place] % (Auto) 8.7 Eos % (Auto) 1.5 Baso % (Auto) 0.4 Neut # (Auto) 7.49 Lymph # (Auto) 1.2 [place] # (Auto) 0.9 Eos # (Auto) 0.2 Baso # (Auto) 0.0 Nucleated RBC % (a uto) 0 Nucleated RBCs # 0.0 Sodium 137 Potassium 3.5 Chloride 102 Carbon Dioxide 27 Anion Gap 11.5 BUN 9 Creatinine 0.7 GFR Calculation 114.3 Glucose 120 H Calculated Osmolal ity 284 L Calcium 8.4 L Total Bilirubin 0.5 AST 25 ALT 20 Alkaline Phosphata se 105 Total Protein 6.5 L Albumin 3.6 Globulin 2.9 SARS-CoV-2 Ag (Rap id) Pending Vitals: Last Vital Signs Temp 97.2 F L 06/04/20 12:00 Pulse 71 06/04/20 12:00 Resp 18 06/04/20 12:00 BP 125/80 06/04/20 12:00 Pulse Ox 97 06/04/20 12:00 Discharge Plan Discharge Patient Disposition: Home Condition: Stable Prescriptions: New levofloxacin 750 mg tablet 750 mg PO DAILY 7 Days Qty: 7 RF: 0 Flagyl 500 mg tablet 500 mg PO Q8H 7 Days Qty: 21 RF: 0 Continued quetiapine 25 mg Tablet 25 mg PO DAILY@08 RF: 0 lamotrigine 150 mg Tablet 150 mg PO BID@08,20 RF: 0 quetiapine 300 mg Tablet 300 mg PO DAILY@20 RF: 0 atorvastatin 10 mg Tablet 10 mg PO DAILY@20 RF: 0 dextromethorphan-guaifenesin 10-100 mg/5 mL Syrup 5 ml PO . DIRECTED PRN (Reason: Cough) RF: 0 pantoprazole 40 mg Tablet,Delayed Release (Dr/Ec) 40 mg PO DAILY@05 RF: 0 metformin 1,000 mg Tablet 1,000 mg PO BID@05,17 RF: 0 Banophen 25 mg Tablet 25 mg PO Q6H PRN (Reason: Allergy Symptoms) RF: 0 Vitamin C 500 mg Tablet,Chewable 500 mg PO PRN RF: 0 metoprolol tartrate 50 mg Tablet 50 mg PO BID@08,20 RF: 0 Ventolin HFA 90 mcg/actuation Hfa Aerosol Inhaler 2 puff inhalation Q6H PRN (Reason: Cough) RF: 0 paroxetine HCl 40 mg Tablet 40 mg PO DAILY@20 RF: 0 loratadine 10 mg Tablet 10 mg PO DAILY@08 RF: 0 omega-3 fatty acids-vitamin E 1,000 mg Capsule 1 cap PO BID@08,20 RF: 0 Januvia 50 mg Tablet 50 mg PO DAILY@06 RF: 0 Discharge Orders: Discharge Order (Routine); Ordered 06/04/20 Ordered By: Tucker Virgen Referrals: Sourav Weiss MD [Primary Care Provider] - 4-7 days (Please call your primary health care provider and schedule an appointment to be seen within 10 days.) Alfonso Suero MD [Physician] - 06/18/20 10:20 am (Return to surgery office in 2 weeks to discuss elective laparoscopic cholecystectomy) Discharge Diet: Advance as tolerated, Diabetic, Low Fat and Full LIquid Patient Instructions: Metronidazole (By mouth), Levofloxacin (By mouth), Cholecystitis (GEN) Activity Restrictions/Additional Instructions: Please continue attempts to stop smoking. Continue monitoring treatment of chronic conditions including blood glucose monitoring and treatment of diabetes. Discharge Attestations Time Spent in Discharge Care*: greater than 30 min Quality Metrics Clinical Quality Measures During this hospital stay, did patient experience: None Coding Level of Care Code Acute Chg FW DC note Diagnoses Acute calculous cholecystitis K80.00
[2020-06-04 13:39] LABS: SARS Covid-2 Antigen Negative (Negative)
--- NOTE | 2020-06-04 13:57 | PC.NURSE ---
PT HAS DONE WELL FOR ME TODAY. PT HAS HAD NO COMPLAINTS OF PAIN. PTS ASSESSMENT IS GOOD AND HE IS TOLERATING A FULL LIQUID DIET WELL. HEART AND LUNGS WNL, NO SKIN ISSUES, ACTIVE BOWEL SOUNDS, NO COMPLAINTS OF PAIN UPON PALPITATION OF ABDOMEN. DR JAEGER VISITED WITH PT THIS MORNING AND TALKED ABOUT MEETING IN TWO WEEKS. PT IS READY FOR DISCHARGE. REPORT WAS CALLED TO [facility]. WAITING FOR TRANSPORTATION. WILL CONTINUE TO MONITOR PT.
== END 2020-06-04 15:47 | disposition skilled nursing facility (03) | DRG 872 ==
LOC: ER 15:39 → MEDSURG 18:36
PROVIDERS: Surgery; Admitting Provider Internal Medicine; Emergency Provider Family Medicine; Visit Provider Internal Medicine
DX: A41.9 Sepsis, unspecified organism (principal); K80.00 Calculus of gallbladder with acute cholecystitis without obstruction; E11.9 Type 2 diabetes mellitus without complications; G40.909 Epilepsy, unspecified, not intractable, without status epilepticus; E78.5 Hyperlipidemia, unspecified; K21.9 Gastro-esophageal reflux disease without esophagitis; F20.9 Schizophrenia, unspecified; F17.210 Nicotine dependence, cigarettes, uncomplicated; Z79.84 Long term (current) use of oral hypoglycemic drugs; F09 Unspecified mental disorder due to known physiological condition
CPT/HCPCS: 36415; 71045; 74176; 76705; 80053; 81001; 83605; 83690; 83880; 84484; 85025; 85610; 85730; 87040; 87086; 87426; 93005; 96365; 96367; 96372; 99285; J1644; J1956; J3490; S0030

== ENCOUNTER 2020-08-12 15:35 | Emergency (ER) | payer MEDICARE, MEDICAID, SELFPAY ==
[2020-08-12 15:40] VITALS: BP 147/85; PULSE 71; RESP 16; O2SAT 97; BMI 24.3
--- NOTE | 2020-08-12 15:40 | ECG_ITS ---
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 Measurements Intervals [place] Rate: 70 P: 63 CO: 226 QRS: 66 QRSD: 80 T: 90 QT: 307 QTc: 333 Interpretive Statements SINUS RHYTHM WITH FIRST DEGREE AV BLOCK NONSPECIFIC T-WAVE ABNORMALITY Compared to ECG 06/01/2020 18:32:08 First degree AV block now present Sinus arrhythmia no longer present T-wave abnormality still present Electronically Signed On 08-12-2020 20:06:04 CDT by Adan Jones M.D. [id number] f
--- NOTE | 2020-08-12 15:40 | XR_ITS ---
WS: [id number] Portable AP upright chest, 08/12/2020 Clinical Data: chest pain Comparison: Portable chest, 06/01/2020. Findings: Right diaphragm remains elevated. The heart size is normal. No nodules, masses or effusions are seen. The aortic arch and descending aorta show mild calcification and tortuosity. No pneumonia or pneumothorax is present. The pulmonary vascularity is not increased. Monitor leads are on the ches t wall. XR/XR chest 1V portable [id number] Impression: Atherosclerosis and elevation of the right diaphragm.
--- NOTE | 2020-08-12 15:58 | W.ED.CHESTPA ---
Documented by User: Lobo Gillette DO 08/17/20 09:31 HPI - Chest Pain General: Chief Complaint: Chest Pain Stated Complaint: CHEST PAIN, FEELS LIKE PRESSURE Time Seen by Provider: 08/12/20 15:37 History of Present Illness: HPI narrative: 64-year-old male who presents emergency room with complaint of chest pain. States chest pain began while he was at rest has not had any nausea or diaphoresis with it does not radiate. He has no known history of coronary artery disease. Patient has a history of impaired glucose tolerance. Has a history of hypertension he does smoke. MD complaint: chest pain Onset (ago): hour(s) Timing of current episode: episodic Prior episodes: Yes Onset: during rest Pain location: substernal Pain radiation: none Severity: moderate Quality: tightness and heaviness Relieving factors: nothing Associated symptoms: Deny abdominal pain, diaphoresis, dyspnea, fever(s), leg edema, nausea, palpitations, sense of impending doom, syncope or vomiting Treatment prior to arrival: none Review of Systems Const: Denies: fever(s) or diaphoresis ENMT: Denies: throat pain, ear or mastoid pain, nasal discharge or nasal congestion Card: Denies: palpitations or syncope Resp: Denies: dyspnea GI: Denies: abdominal pain, nausea or vomiting : Denies: flank pain, dysuria, urinary frequency or urinary urgency Skin/Breast: Denies: rash or pruritus PFSH ED PFSH: Medical History Acute calculous cholecystitis DM type 2 (diabetes mellitus, type 2) GERD (gastroesophageal reflux disease) Post-traumatic organic mental disorder Schizophrenia Seizure disorder Surgical History Hx of appendectomy Family History Other No significant family history Social History Smoking and tobacco status: current every day smoker cigarettes Packs smoked per day: 0.25 Alcohol intake: former Lives independently: No Household members: other Housing: Other Details: jail Marital status: Number of children: 2 Current occupational status: disabled Physical Exam Const: COMMON NORMALS: no acute distress GENERAL APPEARANCE: cooperative and comfortable ORIENTATION/CONSCIOUSNESS: Yes awake, Yes oriented to person, Yes oriented to place and Yes oriented to time HENMT: COMMON NORMALS: normocephalic, atraumatic, hearing grossly normal bilaterally and external ears normal HEAD & SCALP: normocephalic and atraumatic EXTERNAL EAR: Yes external ears normal Neck/C-Spine: COMMON NORMALS: no JVD Resp: COMMON NORMALS: normal respiratory effort, No retractions, No use of accessory muscles and clear to auscultation bilaterally AUSCULTATION: clear to auscultation bilaterally Cardio: COMMON NORMALS: no JVD, regular rate, regular rhythm and No murmurs present (Cardio) RATE: regular rate RHYTHM: regular rhythm GI: COMMON NORMALS: Soft to palpation and No hepatosplenomegaly present AUSCULTATION: Yes normoactive bowel sounds PALPATION: Yes Soft to palpation, No Tenderness to palpation present (GI), No Guarding due to palpation present (GI) and Yes No hepatosplenomegaly present Extremity: COMMON NORMALS: normal to inspection, capillary refill normal, no clubbing, cyanosis or edema, no calf tenderness and no pedal edema Neuro: SENSORIUM/ORIENTATION: Yes oriented to person, Yes oriented to place and Yes oriented to time Skin: COMMON NORMALS: no rashes or lesions noted GENERAL SKIN EXAM: no rashes or lesions noted Course Vital Signs: Vital signs: Vital Signs Pulse Rate 67 08/12/20 22:24 Respiratory Rate 22 H 08/12/20 22:24 Blood Pressure 143/86 08/12/20 22:24 Pulse Oximetry 96 08/12/20 22:24 MDM - Chest Pain MDM Narrative: Medical decision making narrative: Care turned over to Dr. Da Silva at change of see his notes for final diagnosis and disposition Lab Data: Labs: Lab Results 08/12/20 08/12/20 08/12/20 Range/Units 17:40 17:40 17:40 WBC 10.8 H (4.0-10.0) 10^3/ uL RBC 4.07 L (4.1-5.3) 10^6/u L Hgb 12.7 (11.7-16.6) g/dL Hct 38.8 L (42.0-52.0) % MCV 95.3 H (80-94) fL MCH 31.2 (28.0-34.0) pg MCHC 32.7 (30.0-36.0) g/dL RDW 13.2 (12.1-15.1) % Plt Count 175 (130-400) 10^3/c mm MPV 10.4 (7.4-10.4) fL Neut % (Auto) 82.3 % Lymph % (Auto) 10.9 % [place] % (Auto) 5.8 % Eos % (Auto) 0.3 % Baso % (Auto) 0.4 % Neut # (Auto) 8.93 H (1.8-7.7) 10^3/u L Lymph # (Auto) 1.2 (0.8-4.8) 10^3/u L [place] # (Auto) 0.6 (0.2-0.9) 10^3/u L Eos # (Auto) 0.0 (0.0-0.8) 10^3/u L Baso # (Auto) 0.0 (0.0-0.1) 10^3/u L Nucleated RBC % (a uto) 0 % Nucleated RBCs # 0.0 /100WBC Sodium Cancelled Potassium Cancelled Chloride Cancelled Carbon Dioxide Cancelled Anion Gap Cancelled BUN Cancelled Creatinine Cancelled GFR Calculation Cancelled Glucose Cancelled Calculated Osmolal ity Cancelled Calcium Cancelled Total Bilirubin Cancelled AST Cancelled ALT Cancelled Alkaline Phosphata se Cancelled Troponin T Baselin e Cancelled Troponin T 120 Min picayune (0-15) ng/L Delta Troponin T (0-10) ABS# Total Protein Cancelled Albumin Cancelled Globulin Cancelled 08/12/20 08/12/20 08/12/20 Range/Units 18:06 18:06 19:50 WBC (4.0-10.0) 10^3/ uL RBC (4.1-5.3) 10^6/u L Hgb (11.7-16.6) g/dL Hct (42.0-52.0) % MCV (80-94) fL MCH (28.0-34.0) pg MCHC (30.0-36.0) g/dL RDW (12.1-15.1) % Plt Count (130-400) 10^3/c mm MPV (7.4-10.4) fL Neut % (Auto) % Lymph % (Auto) % [place] % (Auto) % Eos % (Auto) % Baso % (Auto) % Neut # (Auto) (1.8-7.7) 10^3/u L Lymph # (Auto) (0.8-4.8) 10^3/u L [place] # (Auto) (0.2-0.9) 10^3/u L Eos # (Auto) (0.0-0.8) 10^3/u L Baso # (Auto) (0.0-0.1) 10^3/u L Nucleated RBC % (a uto) % Nucleated RBCs # /100WBC Sodium 138 Potassium 4.1 Chloride 100 Carbon Dioxide 29 Anion Gap 13.1 BUN 11 Creatinine 0.7 GFR Calculation 114.3 Glucose 156 H Calculated Osmolal ity 289 Calcium 8.8 Total Bilirubin 1.5 H AST 133 H ALT 124 H Alkaline Phosphata se 224 H Troponin T Baselin e 15 Troponin T 120 Min picayune 14.34 (0-15) ng/L Delta Troponin T -0.66 L (0-10) ABS# Total Protein 6.8 Albumin 4.1 Globulin 2.7 Discharge Plan Discharge Patient Disposition: Home Clinical Impression: Chest pain Qualifiers: Chest pain type: unspecified Qualified Code(s): R07.9 - Chest pain, unspecified Condition: Stable Prescriptions: No Action lamotrigine 150 mg Tablet 150 mg PO BID@08,20 RF: 0 atorvastatin 10 mg Tablet 10 mg PO DAILY@20 RF: 0 dextromethorphan-guaifenesin 10-100 mg/5 mL Syrup 5 ml PO . DIRECTED PRN (Reason: Cough) RF: 0 pantoprazole 40 mg Tablet,Delayed Release (Dr/Ec) 40 mg PO DAILY@05 RF: 0 metformin 1,000 mg Tablet 1,000 mg PO BID@05,17 RF: 0 Banophen 25 mg Tablet 25 mg PO Q6H PRN (Reason: Allergy Symptoms) RF: 0 Vitamin C 500 mg Tablet,Chewable 500 mg PO PRN RF: 0 Ventolin HFA 90 mcg/actuation Hfa Aerosol Inhaler 2 puff inhalation Q6H PRN (Reason: Cough) RF: 0 loratadine 10 mg Tablet 10 mg PO DAILY@08 RF: 0 omega-3 fatty acids-vitamin E 1,000 mg Capsule 1 cap PO BID@08,20 RF: 0 Discharge Orders: Discharge ED (Routine); Ordered 08/12/20 Ordered By: Koko Da Silva Referrals: Sourav Weiss MD [Primary Care Provider] - Discharge Diet: Advance as tolerated Discharge Activity: Resume usual activity Patient Instructions: Chest Pain (ED) Coding Level of Care Code ED Animal Nutrition Teacher for Chg Fwd Exam Comprehensive Documented by User: Koko Da Silva MD 08/12/20 22:29 HPI - Chest Pain General: Chief Complaint: Chest Pain Stated Complaint: CHEST PAIN, FEELS LIKE PRESSURE Time Seen by Provider: 08/12/20 15:37 PFSH ED PFSH: Medical History Acute calculous cholecystitis DM type 2 (diabetes mellitus, type 2) GERD (gastroesophageal reflux disease) Post-traumatic organic mental disorder Schizophrenia Seizure disorder Surgical History Hx of appendectomy Family History Other No significant family history Social History Smoking and tobacco status: current every day smoker cigarettes Packs smoked per day: 0.25 Alcohol intake: former Lives independently: No Household members: other Housing: Other Details: jail Marital status: Number of children: 2 Current occupational status: disabled Course Vital Signs: Vital signs: Vital Signs Pulse Rate 67 08/12/20 22:24 Respiratory Rate 22 H 08/12/20 22:24 Blood Pressure 143/86 08/12/20 22:24 Pulse Oximetry 96 08/12/20 22:24 MDM - Chest Pain MDM Narrative: Medical decision making narrative: Patient presents here with chest pain is very atypical in nature. Patient's blood work here is all normal. Abdominal exam at discharge is also benign with no abdominal tenderness. His EKGs and troponins are negative and he has no signs of acute coronary syndrome. He has no signs of pulmonary embolism. He is stable for discharge and is to follow-up with PCP and return if worsening. Lab Data: Labs: Lab Results 08/12/20 08/12/20 08/12/20 Range/Units 17:40 17:40 17:40 WBC 10.8 H (4.0-10.0) 10^3/ uL RBC 4.07 L (4.1-5.3) 10^6/u L Hgb 12.7 (11.7-16.6) g/dL Hct 38.8 L (42.0-52.0) % MCV 95.3 H (80-94) fL MCH 31.2 (28.0-34.0) pg MCHC 32.7 (30.0-36.0) g/dL RDW 13.2 (12.1-15.1) % Plt Count 175 (130-400) 10^3/c mm MPV 10.4 (7.4-10.4) fL Neut % (Auto) 82.3 % Lymph % (Auto) 10.9 % [place] % (Auto) 5.8 % Eos % (Auto) 0.3 % Baso % (Auto) 0.4 % Neut # (Auto) 8.93 H (1.8-7.7) 10^3/u L Lymph # (Auto) 1.2 (0.8-4.8) 10^3/u L [place] # (Auto) 0.6 (0.2-0.9) 10^3/u L Eos # (Auto) 0.0 (0.0-0.8) 10^3/u L Baso # (Auto) 0.0 (0.0-0.1) 10^3/u L Nucleated RBC % (a uto) 0 % Nucleated RBCs # 0.0 /100WBC Sodium Cancelled Potassium Cancelled Chloride Cancelled Carbon Dioxide Cancelled Anion Gap Cancelled BUN Cancelled Creatinine Cancelled GFR Calculation Cancelled Glucose Cancelled Calculated Osmolal ity Cancelled Calcium Cancelled Total Bilirubin Cancelled AST Cancelled ALT Cancelled Alkaline Phosphata se Cancelled Troponin T Baselin e Cancelled Troponin T 120 Min picayune (0-15) ng/L Delta Troponin T (0-10) ABS# Total Protein Cancelled Albumin Cancelled Globulin Cancelled 08/12/20 08/12/20 08/12/20 Range/Units 18:06 18:06 19:50 WBC (4.0-10.0) 10^3/ uL RBC (4.1-5.3) 10^6/u L Hgb (11.7-16.6) g/dL Hct (42.0-52.0) % MCV (80-94) fL MCH (28.0-34.0) pg MCHC (30.0-36.0) g/dL RDW (12.1-15.1) % Plt Count (130-400) 10^3/c mm MPV (7.4-10.4) fL Neut % (Auto) % Lymph % (Auto) % [place] % (Auto) % Eos % (Auto) % Baso % (Auto) % Neut # (Auto) (1.8-7.7) 10^3/u L Lymph # (Auto) (0.8-4.8) 10^3/u L [place] # (Auto) (0.2-0.9) 10^3/u L Eos # (Auto) (0.0-0.8) 10^3/u L Baso # (Auto) (0.0-0.1) 10^3/u L Nucleated RBC % (a uto) % Nucleated RBCs # /100WBC Sodium 138 Potassium 4.1 Chloride 100 Carbon Dioxide 29 Anion Gap 13.1 BUN 11 Creatinine 0.7 GFR Calculation 114.3 Glucose 156 H Calculated Osmolal ity 289 Calcium 8.8 Total Bilirubin 1.5 H AST 133 H ALT 124 H Alkaline Phosphata se 224 H Troponin T Baselin e 15 Troponin T 120 Min picayune 14.34 (0-15) ng/L Delta Troponin T -0.66 L (0-10) ABS# Total Protein 6.8 Albumin 4.1 Globulin 2.7 EKG Data^: EKG 1: Attestation: I personally reviewed and interpreted this EKG as follows: EKG interpretation date: 08/12/20 EKG interpretation time: 18:07 Interpretation: nsr hr [address] or t wave abnormalities qrs 79 qtc 392 EKG 2: Attestation: I personally reviewed and interpreted this EKG as follows: EKG interpretation date: 08/12/20 EKG interpretation time: 18:49 Interpretation: sinus martin hr [address] or t wave abnormalities qrs 96 qtc 370 Discharge Plan Discharge Patient Disposition: Home Clinical Impression: Chest pain Qualifiers: Chest pain type: unspecified Qualified Code(s): R07.9 - Chest pain, unspecified Condition: Stable Prescriptions: No Action lamotrigine 150 mg Tablet 150 mg PO BID@08,20 RF: 0 atorvastatin 10 mg Tablet 10 mg PO DAILY@20 RF: 0 dextromethorphan-guaifenesin 10-100 mg/5 mL Syrup 5 ml PO . DIRECTED PRN (Reason: Cough) RF: 0 pantoprazole 40 mg Tablet,Delayed Release (Dr/Ec) 40 mg PO DAILY@05 RF: 0 metformin 1,000 mg Tablet 1,000 mg PO BID@05,17 RF: 0 Banophen 25 mg Tablet 25 mg PO Q6H PRN (Reason: Allergy Symptoms) RF: 0 Vitamin C 500 mg Tablet,Chewable 500 mg PO PRN RF: 0 Ventolin HFA 90 mcg/actuation Hfa Aerosol Inhaler 2 puff inhalation Q6H PRN (Reason: Cough) RF: 0 loratadine 10 mg Tablet 10 mg PO DAILY@08 RF: 0 omega-3 fatty acids-vitamin E 1,000 mg Capsule 1 cap PO BID@08,20 RF: 0 Discharge Orders: Discharge ED (Routine); Ordered 08/12/20 Ordered By: Koko Da Silva Referrals: Sourav Weiss MD [Primary Care Provider] - Discharge Diet: Advance as tolerated Discharge Activity: Resume usual activity Patient Instructions: Chest Pain (ED) Coding Level of Care Code ED Animal Nutrition Teacher for Chg Fwd Exam Comprehensive
[2020-08-12 16:02] VITALS: O2SAT 96
--- NOTE | 2020-08-12 17:40 | ECG_ITS ---
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 Measurements Intervals [place] Rate: 64 P: 35 NC: 186 QRS: 11 QRSD: 79 T: 114 QT: 383 QTc: 396 Interpretive Statements SINUS RHYTHM NONSPECIFIC T-WAVE ABNORMALITY Compared to ECG 08/12/2020 15:43:10 First degree AV block no longer present T-wave abnormality still present Electronically Signed On 08-12-2020 20:13:51 CDT by Adan Jones M.D. [email or web address] TV[email or web address].[email or web address]/store/[id number] f
[2020-08-12 17:41] VITALS: BP 131/72; PULSE 65; RESP 34; O2SAT 96
[2020-08-12 17:47] LABS: Basophils % 0.4 %; Eosinophils % 0.3 %; Hematocrit 38.8 % (42.0-52.0); Hemoglobin 12.7 g/dL (11.7-16.6); Lymphocytes # 1.2 10^3/uL (0.8-4.8); Lymphocytes % 10.9 %; Mean Corpuscular HGB Conc 32.7 g/dL (30.0-36.0); Mean Corpuscular Hemoglobin 31.2 pg (28.0-34.0); Mean Corpuscular Volume 95.3 fL (80-94); Mean Platelet Volume 10.4 fL (7.4-10.4); Monocytes # 0.6 10^3/uL (0.2-0.9); Monocytes % 5.8 %; Neutrophils # 8.93 10^3/uL (1.8-7.7); Neutrophils % 82.3 %; Nucleated Red Blood Cells % 0 %; Platelet Count 175 10^3/cmm (130-400); Red Blood Count 4.07 10^6/uL (4.1-5.3); Red Cell Distribution Width 13.2 % (12.1-15.1); White Blood Count 10.8 10^3/uL (4.0-10.0)
[2020-08-12 18:29] LABS: Troponin(5th) Baseline 15 ng/L (0-15)
[2020-08-12 18:43] LABS: Alanine Aminotransferase 124 U/L (0-41); Albumin Level 4.1 g/dL (3.5-5.2); Alkaline Phosphatase 224 IU/L (40-130); Anion Gap 13.1 (5-19); Aspartate Amino Transferase 133 U/L (0-40); Blood Urea Nitrogen 11 mg/dL (8-23); Calcium 8.8 mg/dL (8.5-10.5); Carbon Dioxide 29 mmol/L (22-29); Chloride 100 mmol/L (98-107); Globulin 2.7 g/dL (1.3-4.6); Glomerular Filtration Rate 114.3 mL/min (90-130); Glucose 156 mg/dL (65-115); Osmolality Calculated 289 mOsm/kg (285-295); Potassium 4.1 mmol/L (3.5-5.1); Sodium 138 mmol/L (136-145); Total Bilirubin 1.5 mg/dL (0.15-1.2); Total Protein 6.8 g/dL (6.6-8.7)
[2020-08-12 19:07] VITALS: BP 146/94; PULSE 60; RESP 28; O2SAT 99
[2020-08-12 20:13] LABS: Troponin 5 2HR 14.34 ng/L (0-15)
[2020-08-12 20:16] LABS: Troponin 5 2HR Delta -0.66 ABS# (0-10)
--- NOTE | 2020-08-12 21:40 | ECG_ITS ---
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 Measurements Intervals [place] Rate: 71 P: 61 MD: 219 QRS: 38 QRSD: 100 T: 85 QT: 345 QTc: 377 Interpretive Statements SINUS RHYTHM WITH FIRST DEGREE AV BLOCK NONSPECIFIC ST & T-WAVE ABNORMALITY Compared to ECG 08/12/2020 18:07:03 First degree AV block now present T-wave abnormality still present Electronically Signed On 08-14-2020 14:27:10 CDT by Keely Fontaine M.D. [email or web address]/[id number]
[2020-08-12 22:24] VITALS: BP 143/86; PULSE 67; RESP 22; O2SAT 96
== END 2020-08-12 22:26 | disposition home or self-care (01) ==
PROVIDERS: Family Medicine; Emergency Provider Emergency Medicine
DX: R07.9 Chest pain, unspecified (principal); E11.9 Type 2 diabetes mellitus without complications; F17.210 Nicotine dependence, cigarettes, uncomplicated
CPT/HCPCS: 36415; 71045; 80053; 84484; 85025; 93005; 99284

== ENCOUNTER 2022-02-23 14:33 | Emergency (ER) | payer MEDICARE, MEDICAID, SELFPAY ==
[2022-02-23 14:41] VITALS: BP 155/134; PULSE 80; RESP 20; TEMP 36.8; O2SAT 97
[2022-02-23 15:22] VITALS: BP 158/110; PULSE 78; RESP 18; O2SAT 95
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
[2022-02-23 16:57] LABS: Basophils # 0.1 10^3/uL (0.0-0.1); Basophils % 0.5 %; Eosinophils # 0.2 10^3/uL (0.0-0.8); Eosinophils % 1.7 %; Hematocrit 42.1 % (42.0-52.0); Hemoglobin 13.8 g/dL (11.7-16.6); Lymphocytes # 2.3 10^3/uL (0.8-4.8); Lymphocytes % 24.9 %; Mean Corpuscular HGB Conc 32.8 g/dL (30.0-36.0); Mean Corpuscular Hemoglobin 31.7 pg (28.0-34.0); Mean Corpuscular Volume 96.8 fl (80-94); Monocytes # 0.6 10^3/uL (0.2-0.9); Monocytes % 6.1 %; Neutrophils # 6.08 10^3/uL (1.8-7.7); Neutrophils % 66.4 %; Nucleated Red Blood Cells % 0 %; Platelet Count 181 10^3/cmm (130-400); Red Blood Count 4.35 10^6/uL (4.1-5.3); Red Cell Distribution Width 12.7 % (12.1-15.1); White Blood Count 9.2 10^3/uL (4.0-10.0)
[2022-02-23 17:19] LABS: Alanine Aminotransferase 15 U/L (0-41); Albumin Level 4.7 g/dL (3.5-5.2); Alkaline Phosphatase 103 U/L (40-130); Anion Gap 14.8 (5-19); Aspartate Amino Transferase 14 U/L (0-40); Blood Urea Nitrogen 10 mg/dL (8-23); Calcium 9.4 mg/dL (8.5-10.5); Carbon Dioxide 30 mmol/L (22-29); Chloride 101 mmol/L (98-107); Globulin 2.5 g/dL (1.3-4.6); Glomerular Filtration Rate 97.3 mL/min (90-130); Glucose 108 mg/dL (65-115); Osmolality Calculated 292 mOsm/kg (285-295); Potassium 4.8 mmol/L (3.5-5.1); Sodium 141 mmol/L (136-145); Total Bilirubin 0.2 mg/dL (0.15-1.2); Total Protein 7.2 g/dL (6.6-8.7)
[2022-02-23 17:21] LABS: Acetaminophen < 5.0 ug/mL (10-30); Salicylate < 0.3 mg/dL (3-10)
[2022-02-23 17:30] VITALS: BP 164/101; PULSE 72; O2SAT 95
[2022-02-23 18:16] LABS: Add Urine Microscopic? YES; Bilirubin Urine Neg (Negative); Blood Urine 2+ (Negative); Glucose Urine UA Norm (Normal); Ketones Urine Negative (Negative); Leukocyte Esterase Urine Negative (Negative); Nitrate Urine Negative (Negative); Protein Urine Neg (Negative); Urine Appearance Hazy (CLEAR); Urine Color Yellow (Yellow); Urobilinogen Urine Norm (Negative); pH Urine 7 (5-7)
[2022-02-23 18:17] LABS: Bacteria Urine TRACE /hpf; RBC Urine 0-4 /hpf (0-2); Squamous Epithelial Cell Urine RARE /hpf (0-5); WBC Urine RARE /hpf (0-5)
[2022-02-23 18:30] VITALS: BP 170/107; PULSE 71; O2SAT 97
[2022-02-23 18:40] VITALS: BP 170/107; PULSE 71; O2SAT 97
--- NOTE | 2022-02-24 00:31 | PC.NURSE ---
Sally called to take pt home
== END 2022-02-24 00:32 | disposition home or self-care (01) ==
PROVIDERS: Emergency Provider Family Medicine
DX: R46.89 Other symptoms and signs involving appearance and behavior (principal); Z79.84 Long term (current) use of oral hypoglycemic drugs; E11.9 Type 2 diabetes mellitus without complications; F17.210 Nicotine dependence, cigarettes, uncomplicated
CPT/HCPCS: 80053; 80307; 81001; 85025; 99283

== ENCOUNTER 2024-08-10 15:46 | Emergency (ER) | payer MEDICARE, MEDICAID, SELFPAY ==
--- NOTE | 2024-08-10 15:47 | XRR_ITS ---
PROCEDURE INFORMATION: Exam: XR Chest Exam date and time: 08/10/2024 4:01 PM Age: 68 years old Clinical indication: Cough and dyspnea; Additional info: Dyspnea/cough TECHNIQUE: Imaging protocol: Radiologic exam of the chest. Views: 1 view. COMPARISON: CR XR chest 1V portable [id number] 08/12/2020 3:41 PM FINDINGS: Lungs: Unremarkable. No consolidation or mass. Pleural spaces: Unremarkable. No pleural effusion. No pneumothorax. Heart/Mediastinum: Unremarkable. No cardiomegaly. Diaphragm: There is chronic elevation of the right hemidiaphragm. Bones/joints: Unremarkable. XR/XR chest 1V portable [id number] IMPRESSION: No acute findings.
--- NOTE | 2024-08-10 15:47 | ECG_ITS ---
[facility] Test Date: 2024-08-10 Pat Name: Aki Glasgow Department: Room: Gender: Male [facility] Director: : 1955 Requested By: Lobo Mckinnon Order Number: [id number] Marco MD: Iker Agustin M.D. Measurements Intervals [place] Rate: 72 P: 0 OR: 0 QRS: -45 QRSD: 96 T: 103 QT: 407 QTc: 448 Interpretive Statements SINUS RHYTHM LEFT VENTRICULAR HYPERTROPHY AND ST-T CHANGE [VOLTAGE CRITERIA PLUS ST/T ABNORMALITY] Electronically Signed On 08-11-2024 19:23:53 CDT by Iker Agustin M.D. [email or web address]
--- NOTE | 2024-08-10 15:48 | CTR_ITS ---
PROCEDURE INFORMATION: Exam: CT Head Without Contrast Exam date and time: 08/10/2024 4:10 PM Age: 68 years old Clinical indication: Altered mental status/memory loss; Additional info: AMS TECHNIQUE: Imaging protocol: Computed tomography of the head without contrast. Radiation optimization: All CT scans at this facility use at least one of these dose optimization techniques: automated exposure control; mA and/or kV adjustment per patient size (includes targeted exams where dose is matched to clinical indication); or iterative reconstruction. COMPARISON: No relevant prior studies available. RADIATION DOSE METRICS: Total DLP (mGy-cm): 1049.98 FINDINGS: Brain: There is mild chronic periventricular white matter ischemic change. There is no evidence of mass effect, infarct or hemorrhage. Cerebral ventricles: No ventriculomegaly. No midline shift. Paranasal sinuses: Visualized sinuses are unremarkable. No fluid levels. Mastoid air cells: Visualized mastoid air cells are well aerated. Bones: Unremarkable. No acute fracture. Soft tissues: Unremarkable. CT/CT head wo con* [id number] IMPRESSION: No acute findings.
--- NOTE | 2024-08-10 15:48 | W.ED.AMS ---
HPI - Altered Mental Status General: Chief Complaint: Dizziness Stated Complaint: ams Time Seen by Provider: 08/10/24 15:46 History of Present Illness: 68-year-old male presents to the emergency room with complaints of frequent falls. Evidently nursing staff says when he gets up he will stumble trip up on his feet and then fall. He denies any pain he has not hurt himself with any of these falls. He denies striking his head or losing consciousness. No chest pain no shortness of breath. He states this has been going on for some time. Related Data Home Medications ?Medication ?Instructions ?Recorded ?Confirmed albuterol sulfate 90 mcg/actuation 2 puff inhalation Q6H PRN Cough 06/01/20 02/23/22 aerosol inhaler (Ventolin HFA) atorvastatin 10 mg tablet 10 mg PO DAILY@06/01/20 02/23/22 lamotrigine 150 mg tablet 150 mg PO BID@,06/01/20 02/23/22 loratadine 10 mg tablet 10 mg PO DAILY@06/01/20 02/23/22 metformin 1,000 mg tablet 1,000 mg PO BID@,06/01/20 02/23/22 omega-3 fatty acids-vitamin E 1 cap PO BID@,06/01/20 02/23/22 1,000 mg capsule pantoprazole 40 mg tablet,delayed 40 mg PO DAILY@06/01/20 02/23/22 release albuterol sulfate 90 mcg/actuation 2 puff inhalation Q6H PRN Cough 02/23/22 02/23/22 aerosol inhaler (Ventolin HFA) cyanocobalamin (vitamin B-12) 250 250 mcg PO DAILY 02/23/22 02/23/22 mcg tablet (Vitamin B-12) paroxetine HCl 40 mg tablet 40 mg PO BEDTIME 02/23/22 02/23/22 quetiapine 300 mg tablet (Seroquel) 300 mg PO BEDTIME 02/23/22 02/23/22 quetiapine 50 mg tablet (Seroquel) 50 mg PO DAILY 02/23/22 02/23/22 sitagliptin phosphate 50 mg tablet 50 mg PO DAILY 02/23/22 02/23/22 (Januvia) timolol maleate 0.5 % eye drops 1 drp ophthalmic (eye) BID 02/23/22 02/23/22 Allergies Allergy/AdvReac Type Severity Reaction Status Date / Time Penicillins Allergy ALGY-Rash Verified 06/25/20 14:48 Review of Systems Const: Denies: fever(s) or chills Card: Denies: chest pain Resp: Denies: dyspnea GI: Denies: abdominal pain : Denies: dysuria, urinary frequency or urinary urgency Musc: Denies: neck pain or back pain Skin/Breast: Denies: rash PFSH ED PFSH: Medical History GERD (gastroesophageal reflux disease) DM type 2 (diabetes mellitus, type 2) Schizophrenia Post-traumatic organic mental disorder Seizure disorder Acute calculous cholecystitis Surgical History Hx of appendectomy Family History Other No significant family history Social History Smoking and tobacco/nicotine status: current every day tobacco/nicotine user cigarettes Packs smoked per day: 0.25 Alcohol intake: former Substance/Drug Use: never Lives independently: No Household members: other Housing: Other Details: snf Marital status: Number of children: 2 Current occupational status: disabled Physical Exam Const: GENERAL APPEARANCE: cooperative ORIENTATION/CONSCIOUSNESS: Yes awake, Yes oriented to person, Yes oriented to place and Yes oriented to time HENMT: COMMON NORMALS: normocephalic, atraumatic and hearing grossly normal bilaterally HEAD & SCALP: normocephalic and atraumatic Resp: COMMON NORMALS: normal respiratory effort, No retractions, No use of accessory muscles and clear to auscultation bilaterally AUSCULTATION: clear to auscultation bilaterally Cardio: COMMON NORMALS: regular rate, regular rhythm and No murmurs present (Cardio) RATE: regular rate RHYTHM: regular rhythm GI: COMMON NORMALS: Soft to palpation and No hepatosplenomegaly present AUSCULTATION: Yes normoactive bowel sounds PALPATION: Yes Soft to palpation, No Tenderness to palpation present (GI), No Guarding due to palpation present (GI) and Yes No hepatosplenomegaly present Extremity: COMMON NORMALS: normal to inspection, capillary refill normal, no clubbing, cyanosis or edema, no calf tenderness and no pedal edema Neuro: SENSORIUM/ORIENTATION: Yes oriented to person, Yes oriented to place and Yes oriented to time Skin: COMMON NORMALS: no rashes or lesions noted GENERAL SKIN EXAM: no rashes or lesions noted Course Vital Signs: Vital signs: Vital Signs Temperature 98.1 F 08/10/24 15:50 Pulse Rate 88 08/10/24 17:43 Respiratory Rate 20 H 08/10/24 16:43 Blood Pressure 150/85 08/10/24 17:43 Pulse Oximetry 99 08/10/24 17:43 Oxygen Delivery Me thod Room Air 08/10/24 15:50 MDM - Altered Mental Status Medical Decision Making Suspect his Seroquel dose may be causing some of this he gets unsteady on his feet. Follow-up with his primary care doctor to consider decreasing dose he is on total of 350 mg daily. Including 300 at at bedtime. He is feeling better at the time of discharge. Medical Records I reviewed the patient's medical records. Lab Data I reviewed the patient's lab results. 08/10/24 16:23 08/10/24 16:23 Radiology Impressions Chest X-Ray 08/10/24 15:47 IMPRESSION: No acute findings. Head CT 08/10/24 15:48 IMPRESSION: No acute findings. Laboratory Results WBC 6.29 10^3/uL (3.29-11.43) 08/10/24 16:23 RBC 4.15 10^6/uL (3.85-5.65) 08/10/24 16:23 Hgb 13.20 g/dL (11.27-16.99) 08/10/24 16:23 Hct 39.7 % (37-53) 08/10/24 16:23 MCV 95.7 fl (82-101) 08/10/24 16:23 MCH 31.8 pg (27-33) 08/10/24 16:23 MCHC 33.2 g/dL (30-55) 08/10/24 16:23 RDW 12.2 % (12.1-15.1) 08/10/24 16:23 Plt Count 171 10^3/cmm (157-399) 08/10/24 16:23 MPV 10.1 fL (7.4-10.4) 08/10/24 16:23 Neut % (Auto) 73.2 % 08/10/24 16:23 Lymph % (Auto) 19.9 % 08/10/24 16:23 [place] % (Auto) 4.1 % 08/10/24 16:23 Eos % (Auto) 1.9 % 08/10/24 16:23 Baso % (Auto) 0.6 % 08/10/24 16:23 Neut # (Auto) 4.60 10^3/uL (1.8-7.7) 08/10/24 16:23 Lymph # (Auto) 1.3 10^3/uL (0.8-4.8) 08/10/24 16:23 [place] # (Auto) 0.3 10^3/uL (0.2-0.9) 08/10/24 16:23 Eos # (Auto) 0.1 10^3/uL (0.0-0.8) 08/10/24 16:23 Baso # (Auto) 0.0 10^3/uL (0.0-0.1) 08/10/24 16:23 Nucleated RBC % (auto) 0 % 08/10/24 16:23 Nucleated RBCs # 0.0 /100WBC 08/10/24 16:23 Sodium 139 mmol/L (136-145) 08/10/24 16:23 Potassium 4.5 mmol/L (3.5-5.1) 08/10/24 16:23 Chloride 99 mmol/L (98-107) 08/10/24 16:23 Carbon Dioxide 28 mmol/L (22-29) 08/10/24 16:23 Anion Gap 16.5 (5-19) 08/10/24 16:23 BUN 13 mg/dL (8-23) 08/10/24 16:23 Creatinine 0.9 mg/dL (0.7-1.2) 08/10/24 16:23 GFR Calculation 84.4 mL/min (90-130) L 08/10/24 16:23 Glucose 231 mg/dL (65-115) H 08/10/24 16:23 Calculated Osmolality 295 mOsm/kg (285-295) 08/10/24 16:23 Calcium 9.1 mg/dL (8.5-10.5) 08/10/24 16:23 Total Bilirubin 0.2 mg/dL (0.15-1.2) 08/10/24 16:23 AST 12 U/L (0-40) 08/10/24 16:23 ALT 9 U/L (0-41) 08/10/24 16:23 Alkaline Phosphatase 128 U/L (40-130) 08/10/24 16:23 Total Protein 7.1 g/dL (6.6-8.7) 08/10/24 16:23 Albumin 4.1 g/dL (3.5-5.2) 08/10/24 16:23 Globulin 3.0 g/dL (1.3-4.6) 08/10/24 16:23 Urine Color Yellow (Yellow) 08/10/24 16:45 Urine Appearance Clear (CLEAR) 08/10/24 16:45 Urine pH 6.5 (5-7) 08/10/24 16:45 Ur Specific [place] 1.015 (1.005-1.030) 08/10/24 16:45 Urine Protein Trace (Negative) A 08/10/24 16:45 Urine Glucose (UA) Negative (Normal) 08/10/24 16:45 Urine Ketones Negative (Negative) 08/10/24 16:45 Urine Blood Negative (Negative) 08/10/24 16:45 Urine Nitrate Negative (Negative) 08/10/24 16:45 Urine Bilirubin Negative (Negative) 08/10/24 16:45 Urine Urobilinogen 1.0 mg/dL (Negative) 08/10/24 16:45 Ur Leukocyte Esterase Negative (Negative) 08/10/24 16:45 Urine RBC 3-5 /hpf (0-2) 08/10/24 16:45 Urine WBC 0-5 /hpf (0-5) 08/10/24 16:45 Ur Squamous Epith Cells 0-5 /hpf (0-5) 08/10/24 16:45 Amorphous Sediment Not Reportable 08/10/24 16:45 Urine Bacteria None seen /hpf (NONE) 08/10/24 16:45 Hyaline Casts 0.40 /lpf 08/10/24 16:45 All radiology interpretation(s) finalized by discharge Discharge Plan Discharge Patient Disposition: Home Clinical Impression: Medication side effect Condition: Stable Prescriptions: No Action lamotrigine 150 mg Tablet 150 mg PO BID@08,20 atorvastatin 10 mg Tablet 10 mg PO DAILY@20 pantoprazole 40 mg Tablet,Delayed Release (Dr/Ec) 40 mg PO DAILY@05 metformin 1,000 mg Tablet 1,000 mg PO BID@05,17 albuterol sulfate [Ventolin HFA] 90 mcg/actuation Hfa Aerosol Inhaler 2 puff inhalation Q6H PRN (Reason: Cough) loratadine 10 mg Tablet 10 mg PO DAILY@08 omega-3 fatty acids-vitamin E 1,000 mg Capsule 1 cap PO BID@08,20 Seroquel 300 mg Tablet 300 mg PO BEDTIME Vitamin B-12 250 mcg Tablet 250 mcg PO DAILY Ventolin HFA 90 mcg/actuation Hfa Aerosol Inhaler 2 puff INHALATION Q6H PRN (Reason: Cough) paroxetine HCl 40 mg Tablet 40 mg PO BEDTIME timolol maleate 0.5 % Drops 1 drp OPHTHALMIC (EYE) BID Rx Instructions: both eyes Seroquel 50 mg Tablet 50 mg PO DAILY Januvia 50 mg Tablet 50 mg PO DAILY Discharge Orders: Discharge ED (Routine); Ordered 08/10/24 Ordered By: Lobo Gillette Referrals: Sourav Weiss MD [Primary Care Provider, Family Practice] Discharge Diet: Usual diet Discharge Activity: Increase activity as tolerated Patient Instructions: Opioid Safety, Pain Management Activity Restrictions/Additional Instructions: Thank you for choosing [facility] for your healthcare needs today. It is very important that you follow up as instructed or that you return to the Emergency Department should you have concerns or if your condition changes or worsens in any way. You were seen today with complaints of dizziness and orthostasis. You were given IV fluids in the emergency room. Recommend that you contact your primary care doctor and consider decreasing the total Seroquel as this is likely precipitating a large portion of your symptoms. Print Language: Maori Coding Level of Care Code ED Vp Treasurer for Junior Nina
[2024-08-10 15:50] VITALS: BP 108/69; PULSE 81; RESP 18; TEMP 36.7; O2SAT 91; BMI 25.4
[2024-08-10 16:16] VITALS: BP 101/68; BP 113/85; BP 135/82; PULSE 82; PULSE 84; PULSE 87
[2024-08-10] MEDS: sodium chloride 0.9% 1,000 ML 999 ML IV (16:25)
[2024-08-10 16:31] LABS: Basophils % 0.6 %; Eosinophils # 0.1 10^3/uL (0.0-0.8); Eosinophils % 1.9 %; Hematocrit 39.7 % (37-53); Lymphocytes # 1.3 10^3/uL (0.8-4.8); Lymphocytes % 19.9 %; Mean Corpuscular HGB Conc 33.2 g/dL (30-55); Mean Corpuscular Hemoglobin 31.8 pg (27-33); Mean Corpuscular Volume 95.7 fl (82-101); Mean Platelet Volume 10.1 fL (7.4-10.4); Monocytes # 0.3 10^3/uL (0.2-0.9); Monocytes % 4.1 %; Neutrophils % 73.2 %; Nucleated Red Blood Cells % 0 %; Platelet Count 171 10^3/cmm (157-399); Red Blood Count 4.15 10^6/uL (3.85-5.65); Red Cell Distribution Width 12.2 % (12.1-15.1); White Blood Count 6.29 10^3/uL (3.29-11.43)
--- NOTE | 2024-08-10 16:42 | PC.NURSE ---
during orthostatic vitals pt became weak and shaking; stats dizzy and attempting to sit down.
[2024-08-10 16:43] VITALS: BP 101/68; PULSE 78; RESP 20; O2SAT 98
[2024-08-10 16:51] LABS: Alanine Aminotransferase 9 U/L (0-41); Albumin Level 4.1 g/dL (3.5-5.2); Alkaline Phosphatase 128 U/L (40-130); Anion Gap 16.5 (5-19); Aspartate Amino Transferase 12 U/L (0-40); Blood Urea Nitrogen 13 mg/dL (8-23); Calcium 9.1 mg/dL (8.5-10.5); Carbon Dioxide 28 mmol/L (22-29); Chloride 99 mmol/L (98-107); Glomerular Filtration Rate 84.4 mL/min (90-130); Glucose 231 mg/dL (65-115); Osmolality Calculated 295 mOsm/kg (285-295); Potassium 4.5 mmol/L (3.5-5.1); Sodium 139 mmol/L (136-145); Total Bilirubin 0.2 mg/dL (0.15-1.2); Total Protein 7.1 g/dL (6.6-8.7)
--- NOTE | 2024-08-10 16:58 | PC.NURSE ---
per [facility] staff; medications as followed, denies any recent changes @ morning: fish oil lamotrigine loratadine metformin metoprolol pantoprazole quetiapine 300mg vitamin b-12 @ bedtime: atorvastatin fish oil lamotrigine metoprolol paroxetine 40mg quetiapine 300mg
[2024-08-10 17:07] LABS: Bilirubin Urine Negative (Negative); Blood Urine Negative (Negative); Glucose Urine UA Negative (Normal); Ketones Urine Negative (Negative); Leukocyte Esterase Urine Negative (Negative); Nitrate Urine Negative (Negative); Protein Urine Trace (Negative); Specific Gravity, Urine 1.015 (1.005-1.030); Urine Appearance Clear (CLEAR); Urine Color Yellow (Yellow); pH Urine 6.5 (5-7)
[2024-08-10 17:09] LABS: Add Urine Microscopic? YES; Bacteria Urine None Seen /hpf; Squamous Epithelial Cell Urine 0-5 /hpf (0-5); WBC Urine 0-5 /hpf (0-5)
--- NOTE | 2024-08-10 17:24 | PC.NURSE ---
called [facility] to give report and ask for transportation back, staff denies having available transportation, states she is only employee working at this moment. no further questions regarding report. ER UC working on transportation back
[2024-08-10 17:43] VITALS: BP 150/85; PULSE 88; O2SAT 99
== END 2024-08-10 17:45 | disposition home or self-care (01) ==
PROVIDERS: Emergency Provider Family Medicine
DX: R41.82 Altered mental status, unspecified (principal); T43.595A Adverse effect of other antipsychotics and neuroleptics, initial encounter; R42 Dizziness and giddiness; R29.6 Repeated falls; Z79.84 Long term (current) use of oral hypoglycemic drugs; X58.XXXA Exposure to other specified factors, initial encounter; F17.210 Nicotine dependence, cigarettes, uncomplicated; E11.9 Type 2 diabetes mellitus without complications
CPT/HCPCS: 36415; 70450; 71045; 80053; 81001; 85025; 93005; 99285; J7030

== ENCOUNTER 2024-08-27 19:13 | Emergency (ER) | payer MEDICARE, MEDICAID, SELFPAY ==
[2024-08-27] VITALS (12 sets, daily range): BP systolic 140–185; BP diastolic 86–113; PULSE 90–118; RESP 24; O2SAT 90–95; BMI 24.0
--- NOTE | 2024-08-27 19:23 | XRR_ITS ---
PROCEDURE INFORMATION: Exam: XR Chest Exam date and time: 08/27/2024 7:31 PM Age: 68 years old Clinical indication: Shortness of breath; Weakness; SOB TECHNIQUE: Imaging protocol: Radiologic exam of the chest. Views: 1 view. COMPARISON: CR (CHEST, ) 08/10/2024 4:01 PM FINDINGS: Lungs: Minor areas of bibasilar atelectasis or scarring. No consolidation. Pleural spaces: Unremarkable. No pleural effusion. No pneumothorax. Heart/Mediastinum: Unremarkable. No cardiomegaly. Diaphragm: At least moderate right hemidiaphragm elevation. Bones/joints: Unremarkable. XR/XR chest 1V portable [id number] IMPRESSION: 1. No acute findings. 2. A few chronic/incidental findings above.
--- NOTE | 2024-08-27 19:23 | CTR_ITS ---
PROCEDURE INFORMATION: Exam: CT Head Without Contrast Exam date and time: 08/27/2024 7:42 PM Age: 68 years old Clinical indication: Altered mental status/memory loss; Confusion or disorientation; Additional info: AMS TECHNIQUE: Imaging protocol: Computed tomography of the head without contrast. Radiation optimization: All CT scans at this facility use at least one of these dose optimization techniques: automated exposure control; mA and/or kV adjustment per patient size (includes targeted exams where dose is matched to clinical indication); or iterative reconstruction. COMPARISON: CT head wo con* [id number] 08/10/2024 4:10 PM RADIATION DOSE METRICS: Total DLP (mGy-cm): 1022.98 FINDINGS: Brain: No focal hemorrhage or midline shift is identified. The ventricles and parenchyma show mild to moderate atrophy and chronic bicerebral white matter ischemic change. Mild falcine density is probably artifactual/physiologic. Cerebral ventricles: No ventriculomegaly or evidence of hydrocephalus. Paranasal sinuses: The partially assessed sinuses are grossly clear. Mastoid air cells: Visualized mastoid air cells are well aerated. Bones: No displaced skull fracture is noted. Soft tissues: Unremarkable. Vasculature: Diffuse vascular calcifications are present. CT/CT head wo con* [id number] IMPRESSION: 1. No acute intracranial hemorrhage. 2. Mild to moderate age-related changes.
--- NOTE | 2024-08-27 19:23 | ECG_ITS ---
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 Measurements Intervals [place] Rate: 113 P: 57 MN: 208 QRS: -30 QRSD: 113 T: 100 QT: 322 QTc: 443 Interpretive Statements SINUS TACHYCARDIA INCOMPLETE RIGHT BUNDLE BRANCH BLOCK [90+ ms QRS DURATION, TERMINAL R IN V1/V2, 40+ ms S IN I/aVL/V4/V5/V6] LEFT VENTRICULAR HYPERTROPHY AND ST-T CHANGE [VOLTAGE CRITERIA PLUS ST/T ABNORMALITY] POSSIBLE SEPTAL MYOCARDIAL INFARCTION , PROBABLY RECENT [30 ms Q WAVE IN V1/V2] ACUTE PA INTERPRETATION BASED ON A DEFAULT AGE OF 40 YEARS Compared to ECG 08/10/2024 16:27:23 Incomplete right bundle-branch block now present Myocardial infarct finding now present.Sinus rhythm no longer present ST (T wave) deviation still present Electronically Signed On 08-28-2024 20:20:12 CDT by Adan Jones M.D. [email or web address]
--- NOTE | 2024-08-27 19:23 | PC.NURSE ---
Pt unable to answer suicidal assessment question due to having dementia.
--- OUTSIDE RECORDS SUMMARY | 2024-08-27 19:23 | XMS_ITS | Data Portability ---
Author Organization [facility], Marilee, [facility] Address [address] [address] Assessment No assessment recorded. Plan of Treatment Reminders Order Date Submit Date Provider Last Modified By Organization Details Last Modified Time Details Appointments None record ed. Lab None record ed. Referral None record ed. Procedures None record ed. Surgeries None record ed. Imaging None record ed. Medication Orders None record ed. Patient TargetsNo targets recorded. Patient Instructions Encounter Date Encounter Id Patient Instructions Last Modified By Organization Details Last Modified Time 03/18/2024 [id number] Most recent a1c 5.3. Hemoglobin good, renal function wnl. Will d/c januvia with plan to repeat a1c in a few months. No complaints, doing well. Not available 03/18/2024 14:17:52 05/20/2024 [id number] Annual H&P Follows with psych, sleeping during the day frequently he reports. Otherwise doing well. [email or web address] Not available 05/20/2024 16:08:20 08/12/2024 [id number] Sleeping most of the time reported by staff. Will decrease seroquel to 100mg hs only. d/c several other meds. Staff to track down last A1c. [email or web address] Not available 08/12/2024 15:30:39 Reason for Referral None Reported. Problems Name Problem SNOMED Code Status Onset Date Resolution Date Notes Provider Name and Address Organization Details Recorded Time Seizure 38661224 [facility] Posttraumatic stress disorder 49564322 Active 2024 [facility]:16[facility]05 Chronic schizophrenia 21464420 Active 2024 KEN campbell, [facility] 5 14:16:16 Type 2 diabetes mellitus 93083964 Active 2024 KEN campbell [facility] 5 14:16:33 Problem Notes None recorded. Medical Equipment None Reported. Medications Name Sig Start Date Stop Date Status Note LastModified by Organization Details LastModified Time Prescription - Clarification active Not Available Not Availabl e Not Available lamotrigine 150 mg tablet active Not Available Not Available No t Available metformin 500 mg tablet active Not Available Not Available No t Available quetiapine 300 mg tablet active Not Available Not Available No t Available atorvastatin 10 mg tablet active Not Available Not Available No t Available pantoprazole 40 mg tablet,delayed release active Not Available Not Available Not Available metoprolol tartrate 50 mg tablet active Not Available Not Available Not Available paroxetine 40 mg tablet active Not Available Not Available No t Available timolol maleate 0.5 % eye drops active Not Available Not Availa ble Not Available quetiapine 50 mg tablet active Not Available Not Available No t Available Januvia 50 mg tablet active Not Available Not Available Not Available Vitals None Recorded Social History None recorded. Functional Status None recorded. Mental Status None recorded. Family History Nothing Reported. Medical History No medical history recorded. Immunizations Vaccine Type Date Status Note Provider Nam e and Address Organization Details Recorded Time Influenza, split virus, quadrivalent, PF 11/29/2021 completed Not Available [facility] 13:45:10 Influenza, adjuvanted, quadrivalent, PF 11/24/2022 completed Not Available [facility] 13:45:10 Influenza, adjuvanted, trivalent, PF 12/20/2023 completed Not Available [facility] 2024 13:45:10 Past Encounters Encounter ID Performer Location Encounter Start Date Encounter Closed Date Diagnosis/Indication Diagnosis SNOMED-CT Code Diagnosis ICD10 Code Diagnosis Note [id number] Kayode Walls DO [facility] ([facility]) [address] [place] [phone] 03/18/2024 08:20:50 03/21/2024 13:05:58 Seizure 52093951 R56.9 Posttrauma tic stress disorder 01768038 F43.10 Chronic schizophrenia 83 055031 F20.89 Type 2 mami betes mellitus 96676662 E11.65 [id number] Kayode Walls DO [facility] ([facility]) [address] [place] [address] 05/20/2024 07:58:22 05/21/2024 15:51:33 Type 2 diabetes mellitus 97188390 E11.65 Posttrauma tic stress disorder 57702845 F43.10 Chronic schizophrenia 83 166327 F20.89 [id number] Kayode Walls DO [facility] ([facility]) [address] [place] [address] 08/12/2024 13:44:46 08/14/2024 13:27:49 Type 2 diabetes mellitus 18084103 E11.65 Posttrauma tic stress disorder 90012469 F43.10 Chronic schizophrenia 83 831684 F20.89 Seizure 68781236 R56.9 Health Concerns Section Related Observation LastModified by Organization Detai ls LastModified Time None Recorded Concern Status LastModified by Organization Details LastModified Time None Recorded Advance Directives Directive None Recorded Payers Insurance Date Sequence Insurance Name Policy Number Policy Mcwilliams Covered Member ID Mcwilliams Member ID Guarantor Name 08/12/2024 1 [place] Aki Glasgow [id number] Aki Glasgow 08/12/2024 [place] - [facility] (MEDICARE) Serge Glasgow [id number] Aki Glasgow 04/24/2024 2 UNSPECIFIED REMIT PAYOR Aki Glasgow 07/02/2024 2 [place] Aki Glasgow [id number] Aki Glasgow Notes Date Note Type Note Provider Name and Address Organization Details Recorded Time 03/18/2024 text/html Anxiety/Depressi onReported bypatient.Alhaji ty:denies suicidal ideations; able to maintain relationships;in creased anxiety Modifying Factors:selectiv e serotonin reuptake inhibitor (SSRI) Kayode Walls DO [address] [place] [address], [phone], [facility] 03/18/2024 16:06:24 05/20/2024 text/html Anxiety/Depressi onReported bypatient.Severi ty:denies suicidal ideations; able to maintain relationships;in creased anxiety Modifying Factors:selectiv e serotonin reuptake inhibitor (SSRI) Kayode Walls DO [address] [place] [address], [phone], [facility], LPrabhaL.C. 05/20/2024 17:00:41 08/12/2024 text/html Anxiety/Depressi onReported bypatient.Severi ty:denies suicidal ideations; able to maintain relationships;in creased anxiety Modifying Factors:selectiv e serotonin reuptake inhibitor (SSRI) seen in ER over the weekend. Kayode Walls DO [address] [place] [address], [phone], [facility], LPrabhaLPrabhaC. 08/12/2024 15:40:36
--- NOTE | 2024-08-27 19:24 | W.ED.AMS ---
HPI - Altered Mental Status General: Chief Complaint: Altered Mental Status Stated Complaint: AMS Time Seen by Provider: 08/27/24 19:17 History of Present Illness: Patient is brought in by EMS with concern for altered mental status after being found in somebody's backyard. Patient states he lives in assisted living and was out walking and thinks he may have passed out but does not remember. Patient denies any chest pain, shortness of breath, cough, fever, abdominal pain, vomiting, or diarrhea. Upon arrival here the patient's close are soaked with sweat. He was found more than a few miles away from his assisted living facility. Denies any pain except for his usual aches and pains. His NIHSS equals 0. Will check labs, give IV fluids, check CT head without IV contrast, and reassess. Related Data Home Medications ?Medication ?Instructions ?Recorded ?Confirmed albuterol sulfate 90 mcg/actuation 2 puff inhalation Q6H PRN Cough 06/01/20 02/23/22 aerosol inhaler (Ventolin HFA) atorvastatin 10 mg tablet 10 mg PO DAILY@06/01/20 02/23/22 lamotrigine 150 mg tablet 150 mg PO BID@,06/01/20 02/23/22 loratadine 10 mg tablet 10 mg PO DAILY@06/01/20 02/23/22 metformin 1,000 mg tablet 1,000 mg PO BID@,06/01/20 02/23/22 omega-3 fatty acids-vitamin E 1 cap PO BID@,06/01/20 02/23/22 1,000 mg capsule pantoprazole 40 mg tablet,delayed 40 mg PO DAILY@06/01/20 02/23/22 release albuterol sulfate 90 mcg/actuation 2 puff inhalation Q6H PRN Cough 02/23/22 02/23/22 aerosol inhaler (Ventolin HFA) cyanocobalamin (vitamin B-12) 250 250 mcg PO DAILY 02/23/22 02/23/22 mcg tablet (Vitamin B-12) paroxetine HCl 40 mg tablet 40 mg PO BEDTIME 02/23/22 02/23/22 quetiapine 300 mg tablet (Seroquel) 300 mg PO BEDTIME 02/23/22 02/23/22 quetiapine 50 mg tablet (Seroquel) 50 mg PO DAILY 02/23/22 02/23/22 sitagliptin phosphate 50 mg tablet 50 mg PO DAILY 02/23/22 02/23/22 (Januvia) timolol maleate 0.5 % eye drops 1 drp ophthalmic (eye) BID 02/23/22 02/23/22 Allergies Allergy/AdvReac Type Severity Reaction Status Date / Time Penicillins Allergy ALGY-Rash Verified 06/25/20 14:48 Review of Systems Eyes: Denies: change in vision or blurry vision ENMT: Denies: throat pain Card: Denies: chest pain or palpitations Resp: Denies: dyspnea or productive cough GI: Denies: abdominal pain, nausea or vomiting Skin/Breast: Denies: rash Neuro: Denies: headache(s) or numbness in extremities PFSH ED PFSH: Medical History (Updated 08/27/24 @ 23:10 by Damian Pisano MD) GERD (gastroesophageal reflux disease) DM type 2 (diabetes mellitus, type 2) Schizophrenia Post-traumatic organic mental disorder Seizure disorder Acute calculous cholecystitis Surgical History Hx of appendectomy Family History Other No significant family history Social History Smoking and tobacco/nicotine status: current every day tobacco/nicotine user cigarettes Packs smoked per day: 0.25 Alcohol intake: former Substance/Drug Use: never Lives independently: No Household members: other Housing: Other Details: snf Marital status: Number of children: 2 Current occupational status: disabled Physical Exam Const: COMMON NORMALS: no acute distress, healthy appearing and alert HENMT: COMMON NORMALS: normocephalic and atraumatic HEAD & SCALP: normocephalic and atraumatic Eye: COMMON NORMALS: Equal, round and reactive pupils present and EOMs intact bilaterally PUPIL: Yes Equal, round and reactive pupils present Neck/C-Spine: COMMON NORMALS: full ROM and supple Resp: COMMON NORMALS: normal respiratory effort, No retractions and No use of accessory muscles Cardio: OTHER: Tachycardia GI: COMMON NORMALS: Normal to inspection, nondistended, normoactive bowel sounds present, Soft to palpation and non-tender PALPATION: Yes Soft to palpation Extremity: COMMON NORMALS: normal to inspection and full ROM Neuro: SENSORIUM/ORIENTATION: Yes alert OTHER: Patient is alert and oriented x 2, review of the chart shows that this is likely his baseline Psych: COMMON NORMALS: cooperative Skin: COMMON NORMALS: no rashes or lesions noted and no wounds GENERAL SKIN EXAM: no rashes or lesions noted Course Vital Signs: Vital signs: Vital Signs Pulse Rate 91 08/27/24 23:00 Respiratory Rate 24 H 08/27/24 19:14 Blood Pressure 151/90 08/27/24 23:00 Pulse Oximetry 94 08/27/24 23:00 Oxygen Delivery Me thod Room Air 08/27/24 19:52 MDM - Altered Mental Status Medical Decision Making On reassessment I talked with the patient about his test results. His initial lactic acid came back elevated at 5.2. His initial creatinine was also elevated at 1.7. After IV fluids his lactic acid improved to normal. His creatinine came down to 1.4. His heart rate is no longer elevated as well. He states he feels much better. We discussed staying out of the heat for the next couple of days. Will discharge at this time with precautions to return for worsening or changing symptoms. Lab Data 08/27/24 19:32 08/27/24 21:32 Radiology Impressions Chest X-Ray 08/27/24 19:23 IMPRESSION: 1. No acute findings. 2. A few chronic/incidental findings above. Head CT 08/27/24 19:23 IMPRESSION: 1. No acute intracranial hemorrhage. 2. Mild to moderate age-related changes. Laboratory Results WBC 10.98 10^3/uL (3.29-11.43) 08/27/24 19:32 RBC 4.30 10^6/uL (3.85-5.65) 08/27/24 19:32 Hgb 13.60 g/dL (11.27-16.99) 08/27/24 19:32 Hct 41.4 % (37-53) 08/27/24 19:32 MCV 96.3 fl (82-101) 08/27/24 19:32 MCH 31.6 pg (27-33) 08/27/24 19:32 MCHC 32.9 g/dL (30-55) 08/27/24 19:32 RDW 12.3 % (12.1-15.1) 08/27/24 19:32 Plt Count 400 10^3/cmm (157-399) H 08/27/24 19:32 MPV 9.3 fL (7.4-10.4) 08/27/24 19:32 Neut % (Auto) 84.2 % 08/27/24 19:32 Lymph % (Auto) 8.8 % 08/27/24 19:32 [place] % (Auto) 5.3 % 08/27/24 19:32 Eos % (Auto) 0.1 % 08/27/24 19:32 Baso % (Auto) 0.5 % 08/27/24 19:32 Neut # (Auto) 9.24 10^3/uL (1.8-7.7) H 08/27/24 19:32 Lymph # (Auto) 1.0 10^3/uL (0.8-4.8) 08/27/24 19:32 [place] # (Auto) 0.6 10^3/uL (0.2-0.9) 08/27/24 19:32 Eos # (Auto) 0.0 10^3/uL (0.0-0.8) 08/27/24 19:32 Baso # (Auto) 0.1 10^3/uL (0.0-0.1) 08/27/24 19:32 Nucleated RBC % (auto) 0 % 08/27/24 19: Nucleated RBCs # 0.0 /100WBC 08/27/24 19:32 Sodium 137 mmol/L (136-145) 08/27/24 21:32 Potassium 4.3 mmol/L (3.5-5.1) 08/27/24 21:32 Chloride 100 mmol/L (98-107) 08/27/24 21:32 Carbon Dioxide 22 mmol/L (22-29) 08/27/24 21:32 Anion Gap 19.3 (5-19) H 08/27/24 21:32 BUN 16 mg/dL (8-23) 08/27/24 21:32 Creatinine 1.4 mg/dL (0.7-1.2) H 08/27/24 21:32 GFR Calculation 50.7 mL/min (90-130) L 08/27/24 21:32 Glucose 103 mg/dL (65-115) 08/27/24 21:32 POC Glucose 208 mg/dL (70-110) H 08/27/24 19:17 Calculated Osmolality 285 mOsm/kg (285-295) 08/27/24 21:32 Lactic Acid 5.2 mmol/L (0.5-2.2) H* 08/27/24 19:32 Lactic Acid (Sepsis) 1.5 mmol/L (0.5-2.2) 08/27/24 21:32 Calcium 8.9 mg/dL (8.5-10.5) 08/27/24 21:32 Total Bilirubin 0.4 mg/dL (0.15-1.2) 08/27/24 19:32 AST 19 U/L (0-40) 08/27/24 19:32 ALT 17 U/L (0-41) 08/27/24 19:32 Alkaline Phosphatase 124 U/L (40-130) 08/27/24 19:32 Creatine Kinase 199 U/L (39-308) 08/27/24 19:32 Troponin T Baseline 34 ng/L (0-15) H 08/27/24 19:32 Troponin T 120 Minute 28.00 ng/L (0-15) H 08/27/24 21:32 Delta Troponin T -6.00 ABS# (0-10) L 08/27/24 21:32 Total Protein 8.3 g/dL (6.6-8.7) 08/27/24 19:32 Albumin 4.4 g/dL (3.5-5.2) 08/27/24 19:32 Globulin 3.9 g/dL (1.3-4.6) 08/27/24 19:32 Urine Color Yellow (Yellow) 08/27/24 19:54 Urine Appearance Cloudy (CLEAR) A 08/27/24 19:54 Urine pH 5.5 (5-7) 08/27/24 19:54 Ur Specific [place] 1.019 (1.005-1.030) 08/27/24 19:54 Urine Protein 2+ (Negative) A 08/27/24 19:54 Urine Glucose (UA) Negative (Normal) 08/27/24 19:54 Urine Ketones Trace (Negative) 08/27/24 19:54 Urine Blood Trace (Negative) A 08/27/24 19:54 Urine Nitrate Negative (Negative) 08/27/24 19:54 Urine Bilirubin Negative (Negative) 08/27/24 19:54 Urine Urobilinogen 1.0 mg/dL (Negative) 08/27/24 19:54 Ur Leukocyte Esterase 1+ (Negative) A 08/27/24 19:54 Urine RBC 6-10 /hpf (0-2) 08/27/24 19:54 Urine WBC 11-20 /hpf (0-5) H 08/27/24 19:54 Ur Squamous Epith Cells 6-10 /hpf (0-5) 08/27/24 19:54 Amorphous Sediment Not Reportable 08/27/24 19:54 Urine Bacteria None seen /hpf (NONE) 08/27/24 19:54 Hyaline Casts 149.37 /lpf 08/27/24 19:54 Fine Granular Casts 5-10 /lpf H 08/27/24 19:54 Salicylates < 0.3 mg/dL (3-10) L 08/27/24 19:32 Acetaminophen < 5.0 ug/mL (10-30) L 08/27/24 19:32 Ethyl Alcohol < 10 mg/dL (0-10) 08/27/24 19:32 All radiology interpretation(s) finalized by discharge Discharge Plan Discharge Patient Disposition: Home Clinical Impression: Acute dehydration, Heat exhaustion Condition: Stable Prescriptions: No Action lamotrigine 150 mg Tablet 150 mg PO BID@08,20 atorvastatin 10 mg Tablet 10 mg PO DAILY@20 pantoprazole 40 mg Tablet,Delayed Release (Dr/Ec) 40 mg PO DAILY@05 metformin 1,000 mg Tablet 1,000 mg PO BID@05,17 albuterol sulfate [Ventolin HFA] 90 mcg/actuation Hfa Aerosol Inhaler 2 puff inhalation Q6H PRN (Reason: Cough) loratadine 10 mg Tablet 10 mg PO DAILY@08 omega-3 fatty acids-vitamin E 1,000 mg Capsule 1 cap PO BID@08,20 Seroquel 300 mg Tablet 300 mg PO BEDTIME Vitamin B-12 250 mcg Tablet 250 mcg PO DAILY Ventolin HFA 90 mcg/actuation Hfa Aerosol Inhaler 2 puff INHALATION Q6H PRN (Reason: Cough) paroxetine HCl 40 mg Tablet 40 mg PO BEDTIME timolol maleate 0.5 % Drops 1 drp OPHTHALMIC (EYE) BID Rx Instructions: both eyes Seroquel 50 mg Tablet 50 mg PO DAILY Januvia 50 mg Tablet 50 mg PO DAILY Discharge Orders: Discharge ED (Routine); Ordered 08/27/24 Ordered By: Damian Pisano Referrals: Sourav Weiss MD [Primary Care Provider, Family Practice] Patient Instructions: Heat Exhaustion - Adult, Dehydration (DC), Patient Portal & Cecil Instructions Print Language: Filipino Coding Level of Care Code ED Special Education Instructor for Junior Nina
[2024-08-27 19:52] LABS: Hematocrit 41.4 % (37-53); Hemoglobin 13.60 g/dL (11.27-16.99); Mean Corpuscular HGB Conc 32.9 g/dL (30-55); Mean Corpuscular Hemoglobin 31.6 pg (27-33); Mean Corpuscular Volume 96.3 fl (82-101); Nucleated Red Blood Cells % 0 %; Platelet Count 400 10^3/cmm (157-399); Red Blood Count 4.30 10^6/uL (3.85-5.65); White Blood Count 10.98 10^3/uL (3.29-11.43)
[2024-08-27 20:01] LABS: Glucose Urine UA Negative (Normal); Nitrate Urine Negative (Negative); Specific Gravity, Urine 1.019 (1.005-1.030)
[2024-08-27 20:06] LABS: Add Urine Microscopic? YES
[2024-08-27 20:18] LABS: Alanine Aminotransferase 17 U/L (0-41); Albumin Level 4.4 g/dL (3.5-5.2); Alkaline Phosphatase 124 U/L (40-130); Anion Gap 24.2 (5-19); Aspartate Amino Transferase 19 U/L (0-40); Blood Urea Nitrogen 17 mg/dL (8-23); Calcium 10.4 mg/dL (8.5-10.5); Carbon Dioxide 24 mmol/L (22-29); Chloride 95 mmol/L (98-107); Creatinine Clr Calc Pharmacy 43.5260; Globulin 3.9 g/dL (1.3-4.6); Glucose 178 mg/dL (65-115); Osmolality Calculated 294 mOsm/kg (285-295); Potassium 4.2 mmol/L (3.5-5.1); Sodium 139 mmol/L (136-145); Total Protein 8.3 g/dL (6.6-8.7)
[2024-08-27 20:19] LABS: Acetaminophen < 5.0 ug/mL (10-30); Alcohol Level < 10 mg/dL (0-10); Salicylate < 0.3 mg/dL (3-10)
[2024-08-27 20:20] LABS: Lactic Sepsis W/Reflex 5.2 mmol/L (0.5-2.2)
[2024-08-27 20:40] LABS: UA Slide Review UA Slide Review Perf
[2024-08-27 20:49] LABS: Troponin(5th) Baseline 34 ng/L (0-15)
[2024-08-27 21:36] LABS: Reflex Lactate Order REFLEX LACTIC ORDERD
[2024-08-27 22:00] LABS: Troponin 5 2HR 28.00 ng/L (0-15)
[2024-08-27 22:01] LABS: Troponin 5 2HR Delta -6.00 ABS# (0-10)
[2024-08-27 22:05] LABS: Anion Gap 19.3 (5-19); Blood Urea Nitrogen 16 mg/dL (8-23); Calcium 8.9 mg/dL (8.5-10.5); Carbon Dioxide 22 mmol/L (22-29); Chloride 100 mmol/L (98-107); Creatinine Clr Calc Pharmacy 52.8530; Glucose 103 mg/dL (65-115); Osmolality Calculated 285 mOsm/kg (285-295); Potassium 4.3 mmol/L (3.5-5.1); Sodium 137 mmol/L (136-145)
[2024-08-27 22:06] LABS: Lactic Acid level (Lactate) 1.5 mmol/L (0.5-2.2)
== END 2024-08-27 23:56 | disposition home or self-care (01) ==
PROVIDERS: Emergency Provider Emergency Medicine
DX: E86.0 Dehydration (principal); X30.XXXA Exposure to excessive natural heat, initial encounter; Z79.84 Long term (current) use of oral hypoglycemic drugs; F17.210 Nicotine dependence, cigarettes, uncomplicated; E11.9 Type 2 diabetes mellitus without complications
CPT/HCPCS: 36415; 36416; 70450; 71045; 80048; 80053; 80307; 81001; 82550; 82962; 83605; 84484; 85025; 87040; 93005; 96360; 96361; 99285; J7030

== ENCOUNTER 2024-08-30 04:24 | Emergency (ER) | payer MEDICARE, MEDICAID, SELFPAY ==
[2024-08-30 04:24] VITALS: BP 141/74; PULSE 110; RESP 16; TEMP 36.5; O2SAT 90
--- OUTSIDE RECORDS SUMMARY | 2024-08-30 04:35 | XMS_ITS ---
Author Organization Unknown Problems Date Problem Result OnSetDate Icd10 SnomedCode Severity Cu stom 03/18/2024 12:00:00 AM Seizure 03/18/2024 12:00:00 AM [id number] 03/18/2024 12:00:00 AM Posttraumatic stress disorder 03/18/2024 12:00:00 AM [id number] 03/18/2024 12:00:00 AM Chronic schizophrenia 03/18/2024 12:00:00 AM [id number] 03/18/2024 12:00:00 AM Type 2 diabetes mellitus 03/18/2024 12:00:00 AM [id number]
--- OUTSIDE RECORDS SUMMARY | 2024-08-30 04:35 | XMS_ITS | Clinical Summary ---
Author Organization [facility] Address [address] [facility] Attn: Epic Prelude ADT ALISA CERDA [address] Care Team Providers Care Toxicology Supervisor Name Role Phone Unavailable Primary Care Provider Unavailabl e Allergies No known active allergies Medications OTHER PREDNISOLONE 1%/ GATIFLOXACIN 0.5%/ BROMFENAC 0.07%. Start 3 days before surgery 1 drop 3 times a day in the surgical eye for 24 days 3.5 Each 1 Active umrpo-9-WAY-EPA -fish oil 1,000 mg Capsule Take by mouth. Active albuterol HFA 90 mcg inhaler Take 2 Puffs by inhalation every 6 hours as needed for Shortness of Breath, Wheezing or Other (See Comment) (cough). Active diphenhydrAMINE (BENADRYL) 25 mg tablet Take 25 mg by mouth every 6 hours as needed for Allergies. Active ascorbic acid (VITAMIN C) 500 mg Tablet, Chewable Take 500 mg by mouth 1 time daily as needed. Active brimonidine (ALPHAGAN) 0.2 % solution Administer 1 Drop in both eyes 3 times daily. Right eye then left Active metoprolol tartrate (LOPRESSOR) 50 mg tablet Take 50 mg by mouth 2 times daily. Active PARoxetine HCl (PAXIL) 40 mg tablet Take 40 mg by mouth daily. Active QUEtiapine (SEROquel) 25 mg tablet Take 25 mg by mouth 2 times daily. Active loratadine (CLARITIN) 10 mg tablet Take 10 mg by mouth daily. Active SITagliptin phosphate (JANUVIA) 50 mg Tablet Take 50 mg by mouth daily with breakfast. Active atorvastatin (LIPITOR) 10 mg tablet Take 10 mg by mouth daily with supper. Active lamoTRIgine (LaMICtal) 150 mg tablet Take 150 mg by mouth 2 times daily. Active metFORMIN (GLUCOPHAGE) 1,000 mg tablet Take 1,000 mg by mouth daily. Active pantoprazole (PROTONIX) 40 mg Tablet, Delayed Release (E.C.) Take 40 mg by mouth daily. 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 Gender Identity Not on file Sexual Orientation Not on file Last Filed Vital Signs Vital Sign Reading Time Taken Comments Blood Pressure 116/58 01/28/2019 1:01 PM PHYSICAL MEDICINE SPECIALIST Pulse 77 01/28/2019 1:01 PM PHYSICAL MEDICINE SPECIALIST Temperature 36.4 C (97.6 F) 01/28/2019 11:58 AM PHYSICAL MEDICINE SPECIALIST Respiratory Rate 18 01/28/2019 11:58 AM PHYSICAL MEDICINE SPECIALIST Oxygen Saturation - - Inhaled Oxygen Concentration - - Weight 76.2 kg (168 lb) 01/28/2019 1:01 PM PHYSICAL MEDICINE SPECIALIST Height 182.9 cm (6') 01/28/2019 1:01 PM PHYSICAL MEDICINE SPECIALIST Body Mass Index 22.78 01/28/2019 1:01 PM PHYSICAL MEDICINE SPECIALIST Plan of Treatment Health Maintenance Due Date Last Done Comments DTAP/TDAP/TD VACCINES (1 - Tdap) 1976 COLORECTAL SCREENING 2002 Colorectal Cancer Screening 2002 FIT-DNA Q 3 years 2002 FIT/FOBT Q 1 year 2002 Flex Sig/CT Colonography Q 5 years 2002 PNEUMOCOCCAL VACCINE 50+ YEARS (1 of 1 - PCV) 10/07/19 08 ZOSTER VACCINE (1 of 2) 10/07/2007 INFLUENZA VACCINE (#1) 2024 10/24/2018 RSV VACCINE (60+ or ) (1 - 1-dose 75+ series) 2032 Medical Devices Implanted Type Area Salt Refiner Device Identifier Shelf Expiration Date Model / Serial / Lot Lens Io Tecnis 1pc 17.0 [id number] - [id number] Implanted:Qty: 1 on 01/14/2019 by Quinn Hamilton MD Eye Right: Eye [employer] 11/23/2022 [id number] / [id number] / Lens Io Tecnis 1pc 16.5 [id number] - [id number] Implanted:Qty: 1 on 01/28/2019 by Quinn Hamilton MD Eye Left: Eye [employer] 11/15/2022 [id number] / [id number] / Advance Directives For more information, please contact: [phone] Documents on File Type Date Recorded Patient Acetylene Operator Expl anation Advance Directive POA 01/14/2019 10:54 AM Advance Directive POA
--- OUTSIDE RECORDS SUMMARY | 2024-08-30 04:35 | XMS_ITS | Data Portability ---
Author Organization [facility], [place], [facility] Address [address] [address] Assessment No assessment recorded. Plan of Treatment [...] By Organization Details Last Modified Time 03/18/2024 [id number] Most recent a1c 5.3. Hemoglobin good, renal function wnl. Will d/c januvia with plan to repeat a1c in a few months. No complaints, doing well. [email or web address] Not available 03/18/2024 14:17:52 05/20/2024 [id number] Annual H&P Follows with psych, sleeping during the day frequently he reports. Otherwise doing well. [email or web address] Not available 05/20/2024 16:08:20 08/12/2024 [id number] Sleeping most of the time reported by staff. Will decrease seroquel to 100mg hs only. d/c several other meds. Staff to track down last A1c. [email or web address] Not available 08/12/2024 15:30:39 Reason for Referral None Reported. Problems Name Problem SNOMED Code Status Onset Date Resolution Date Notes Provider Name and Address Organization Details Recorded Time Seizure 12276541 [facility] 2024 [facility]16 Posttraumatic stress disorder 15742689 Active 2024 [facility] 14:16:05 Chronic schizophrenia 97532495 Active 2024 KEN campbell, [facility] 5 14:16:16 Type 2 diabetes mellitus 10060800 Active 2024 KEN campbell [facility] 5 14:16:33 Problem Notes None recorded. [...] virus, quadrivalent, PF 11/29/2021 completed Not Available [facility] 13:45:10 Influenza, adjuvanted, quadrivalent, PF 11/24/2022 completed Not Available [facility] 13:45:10 Influenza, adjuvanted, trivalent, PF 12/20/2023 completed Not Available [facility] 2024 13:45:10 Past Encounters Encounter ID Performer Location Encounter Start Date Encounter Closed Date Diagnosis/Indication Diagnosis SNOMED-CT Code Diagnosis ICD10 Code Diagnosis Note [id number] Kayode Walls DO [facility] ([facility]) [address] [place] [phone] 03/18/2024 08:20:50 03/21/2024 13:05:58 Seizure 26138601 R56.9 Posttrauma tic stress disorder 54763729 F43.10 Chronic schizophrenia 83 063908 F20.89 Type 2 mami betes mellitus 85164863 E11.65 [id number] Kayode Walls DO [facility] ([facility]) [address] [place] [address] 05/20/2024 07:58:22 05/21/2024 15:51:33 Type 2 diabetes mellitus 67178054 E11.65 Posttrauma tic stress disorder 62484748 F43.10 Chronic schizophrenia 83 857886 F20.89 [id number] Kayode Walls DO [facility] ([facility]) [address] [place] [address] 08/12/2024 13:44:46 08/14/2024 13:27:49 Type 2 diabetes mellitus 31250762 E11.65 Posttrauma tic stress disorder 66644779 F43.10 Chronic schizophrenia 83 041026 F20.89 Seizure 67783813 R56.9 Health Concerns Section Related Observation LastModified by Organization Detai ls LastModified Time None Recorded Concern Status LastModified by Organization Details LastModified Time None Recorded Advance Directives Directive None Recorded Payers Insurance Date Sequence Insurance Name Policy Number Policy Mcwilliams Covered Member ID Mcwilliams Member ID Guarantor Name 08/12/2024 1 [place] Aki Glasgow [id number] Aki Glasgow 08/12/2024 [place] - [place] A - [facility] (MEDICARE) Serge Glasgow [id number] Aki Glasgow 04/24/2024 2 UNSPECIFIED REMIT PAYOR Aki Glasgow 07/02/2024 2 [place] Aki Glasgow [id number] Aki Glasgow Notes Date Note Type Note Provider Name and Address Organization Details Recorded Time 03/18/2024 text/html Anxiety/Depressi onReported bypatient.Alhaji ty:denies suicidal ideations; able to maintain relationships;in creased anxiety Modifying Factors:selectiv e serotonin reuptake inhibitor (SSRI) Kayode Walls DO [address] [place] [address], [phone], [facility] 03/18/2024 16:06:24 05/20/2024 text/html Anxiety/Depressi onReported bypatient.Severi ty:denies suicidal ideations; able to maintain relationships;in creased anxiety Modifying Factors:selectiv e serotonin reuptake inhibitor (SSRI) Kayode Walls DO [address] [place] [address], [phone], [facility], LPrabhaL.C[facility] 05/20/2024 17:00:41 08/12/2024 text/html Anxiety/Depressi onReported bypatient.Severi ty:denies suicidal ideations; able to maintain relationships;in creased anxiety Modifying Factors:selectiv e serotonin reuptake inhibitor (SSRI) seen in ER over the weekend. Kayode Walls DO [address] [place] [address], [phone], [facility], LPrabhaLPrabhaC. 08/12/2024 15:40:36
--- OUTSIDE RECORDS SUMMARY | 2024-08-30 04:35 | XMS_ITS | Clinical Summary ---
Author Organization [facility] Address [address] [place] [address] Care Team Providers Care Animal Damage Control Agent Name Role Phone Unavailable Primary Care Provider Unavailabl e Allergies No known active allergies Medications pantoprazole (PROTONIX) 40 mg Tablet, Delayed Release (E.C.) Take 40 mg by mouth daily. Active SITagliptin (JANUVIA) 50 mg Tablet Take 50 mg by mouth daily with breakfast. Active QUEtiapine (SEROquel) 25 mg tablet Take 25 mg by mouth 2 times daily. Active loratadine (CLARITIN) 10 mg tablet Take 10 mg by mouth daily. Active metFORMIN (GLUCOPHAGE) 1,000 mg tablet Take 1,000 mg by mouth daily. Active metoprolol tartrate (LOPRESSOR) 50 mg tablet Take 50 mg by mouth 2 times daily. Active lamoTRIgine (LaMICtal) 150 mg tablet Take 150 mg by mouth 2 times daily. Active PARoxetine HCl (PAXIL) 40 mg tablet Take 40 mg by mouth daily. Active atorvastatin (LIPITOR) 10 mg tablet Take 10 mg by mouth daily with supper. Active OTHER PREDNISOLONE 1%/ GATIFLOXACIN 0.5%/ BROMFENAC 0.07%. Start 3 days before surgery 1 drop 3 times a day in the surgical eye for 24 days 3.5 Each 1 9 Active Ahrrp-[id number] -Fish Oil (FISH OIL) 1,000 mg (120 mg-180 mg) Capsule Take by mouth. Activ e brimonidine (ALPHAGAN) 0.2 % solution Administer 1 Drop in both eyes 3 times daily. Right eye then left Active diphenhydrAMINE (BENADRYL) 25 mg tablet Take 25 mg by mouth every 6 hours as needed for Allergies. Active albuterol HFA 90 mcg inhaler Take 2 Puffs by inhalation every 6 hours as needed for Shortness of Breath, Wheezing or Other (See Comment) (cough). Active ascorbic acid (VITAMIN C) 500 mg Tablet, Chewable Take 500 mg by mouth 1 time daily as needed. Active Active Problems Problem Noted Date Diagnosed Date Pseudophakia of both eyes 01/28/2019 Glaucoma suspect of both eyes 01/28/2019 Immunizations Immunization Administration Dates Next Due Influenza Seasonal Unspecified Formulation IM Social History Tobacco Use Types Packs/Day Years Used Date Smoking Tobacco: Every Day Smokeless Tobacco: Current Chew Sex and Gender Information Value Date Recorded Sex Assigned at Not on file Legal Sex Male 2:31 PM CDT Gender Identity Not on file Sexual Orientation Not on file Last Filed Vital Signs Vital Sign Reading Time Taken Comments Blood Pressure 116/58 01/28/2019 1:01 PM BROTH SETTER Pulse 77 01/28/2019 1:01 PM BROTH SETTER Temperature 36.4 C (97.6 F) 01/28/2019 11:58 AM BROTH SETTER Respiratory Rate 18 01/28/2019 11:58 AM BROTH SETTER Oxygen Saturation 99% 01/28/2019 11:58 AM BROTH SETTER Inhaled Oxygen Concentration - - Weight 76.2 kg (168 lb) 01/28/2019 1:01 PM BROTH SETTER Height 182.9 cm (6') 01/28/2019 1:01 PM BROTH SETTER Body Mass Index 22.78 01/28/2019 1:01 PM BROTH SETTER Plan of Treatment Health Maintenance Due Date Last Done Comments DTAP/TDAP/TD VACCINES (1 - Tdap) 1976 PNEUMOCOCCAL VACCINE 50+ YEARS (1 of 2 - PCV) 10/06/18 77 COLORECTAL SCREENING 2002 Colorectal Cancer Screening 2002 FIT-DNA Q 3 years 2002 FIT/FOBT Q 1 year 2002 Flex Sig/CT Colonography Q 5 years 2002 ZOSTER VACCINE (1 of 2) 10/07/2007 INFLUENZA VACCINE (#1) 2024 10/24/2018 RSV VACCINE (60+ or ) (1 - 1-dose 75+ series) 2032 Medical Devices Implanted Type Area Copy Camera Operator Device Identifier Shelf Expiration Date Model / Serial / Lot Lens Io Tecnis 1pc 17.0 [id number] - [id number] Implanted:Qty: 1 on 01/14/2019 by Quinn Hamilton MD at [facility] Right: Eye [employer] 11/23/2022 [id number] / [id number] / Lens Io Tecnis 1pc 16.5 [id number] - [id number] Implanted:Qty: 1 on 01/28/2019 by Quinn Hamilton MD at [facility] Left: Eye [employer] 11/15/2022 [id number] / [id number] / Insurance MEDICARE PART A AND B MEDICAID [place] Advance Directives For more information, please contact: [phone] Documents on File Type Date Recorded Patient Sales And Marketing Specialist Expl anation Advance Directive POA 01/14/2019 10:53 AM Advance Directive POA * Full Code (Latest Code Status on File) Date Activated Date Inactivated Comments 01/28/2019 10:23 AM 01/28/2019 2:18 PM * Full Code Date Activated Date Inactivated Comments 01/14/2019 10:12 AM 01/14/2019 5:52 PM
--- NOTE | 2024-08-30 04:37 | W.ED.AMS ---
HPI - Altered Mental Status General: Chief Complaint: Altered Mental Status Stated Complaint: AMS Time Seen by Provider: 08/30/24 04:33 History of Present Illness: Patient encountered in the emergency department after walking out of [place]. Patient appears confused and provides limited coherent information. When asked about residence, patient indicates they have been living somewhere for approximately two years. Patient states they 'walked out' and 'drove back' but the context is unclear. Patient denies pain, stating 'it doesn't hurt.' Patient reports 'feeling good' when asked about overall condition. Related Data Home Medications ?Medication ?Instructions ?Recorded ?Confirmed albuterol sulfate 90 mcg/actuation 2 puff inhalation Q6H PRN Cough 06/01/20 02/23/22 aerosol inhaler (Ventolin HFA) atorvastatin 10 mg tablet 10 mg PO DAILY@06/01/20 02/23/22 lamotrigine 150 mg tablet 150 mg PO BID@,06/01/20 02/23/22 loratadine 10 mg tablet 10 mg PO DAILY@06/01/20 02/23/22 metformin 1,000 mg tablet 1,000 mg PO BID@,06/01/20 02/23/22 omega-3 fatty acids-vitamin E 1 cap PO BID@,06/01/20 02/23/22 1,000 mg capsule pantoprazole 40 mg tablet,delayed 40 mg PO DAILY@06/01/20 02/23/22 release albuterol sulfate 90 mcg/actuation 2 puff inhalation Q6H PRN Cough 02/23/22 02/23/22 aerosol inhaler (Ventolin HFA) cyanocobalamin (vitamin B-12) 250 250 mcg PO DAILY 02/23/22 02/23/22 mcg tablet (Vitamin B-12) paroxetine HCl 40 mg tablet 40 mg PO BEDTIME 02/23/22 02/23/22 quetiapine 300 mg tablet (Seroquel) 300 mg PO BEDTIME 02/23/22 02/23/22 quetiapine 50 mg tablet (Seroquel) 50 mg PO DAILY 02/23/22 02/23/22 sitagliptin phosphate 50 mg tablet 50 mg PO DAILY 02/23/22 02/23/22 (Januvia) timolol maleate 0.5 % eye drops 1 drp ophthalmic (eye) BID 02/23/22 02/23/22 Allergies Allergy/AdvReac Type Severity Reaction Status Date / Time Penicillins Allergy ALGY-Rash Verified 06/25/20 14:48 Review of Systems General: Reports: 10 or more systems reviewed and unremarkable except in HPI and below PFSH ED PFSH: Medical History (Updated 08/30/24 @ 04:44 by Eliceo Astorga DO) GERD (gastroesophageal reflux disease) DM type 2 (diabetes mellitus, type 2) Schizophrenia Post-traumatic organic mental disorder Seizure disorder Acute calculous cholecystitis Surgical History Hx of appendectomy Family History Other No significant family history Social History Smoking and tobacco/nicotine status: current every day tobacco/nicotine user cigarettes Packs smoked per day: 0.25 Alcohol intake: former Substance/Drug Use: never Lives independently: No Household members: other Housing: Other Details: residential Marital status: Number of children: 2 Current occupational status: disabled Physical Exam Const: COMMON NORMALS: no acute distress, alert and well nourished HENMT: COMMON NORMALS: normocephalic HEAD & SCALP: normocephalic Eye: COMMON NORMALS: Equal, round and reactive pupils present, EOMs intact bilaterally and conjunctivae normal CONJUNCTIVA: Yes conjunctivae normal PUPIL: Yes Equal, round and reactive pupils present Chest: COMMONS NORMALS: normal inspection of the chest and normal palpation of entire chest wall Resp: COMMON NORMALS: normal respiratory effort, No retractions, No use of accessory muscles, clear to auscultation bilaterally and percussion normal AUSCULTATION: clear to auscultation bilaterally PERCUSSION: percussion normal GI: COMMON NORMALS: Normal to inspection, nondistended, normoactive bowel sounds present, Soft to palpation, non-tender, No hepatosplenomegaly present, no masses and no bruits PALPATION: Yes Soft to palpation and Yes No hepatosplenomegaly present : COMMON NORMALS: Yes no CVA tenderness BLADDER/KIDNEY EXAM: Yes no CVA tenderness Back/Pelvis: COMMON NORMALS: no CVA tenderness Extremity: COMMON NORMALS: normal to inspection, full ROM, capillary refill normal, no joint enlargement, no clubbing, cyanosis or edema, no calf tenderness and no pedal edema Neuro: SENSORIUM/ORIENTATION: Yes alert Skin: COMMON NORMALS: no rashes or lesions noted, turgor normal and no jaundice GENERAL SKIN EXAM: no rashes or lesions noted and turgor normal Course Vital Signs: Vital signs: Vital Signs Temperature 97.7 F 08/30/24 04:24 Pulse Rate 110 H 08/30/24 04:24 Respiratory Rate 16 08/30/24 04:24 Blood Pressure 141/74 08/30/24 04:24 Pulse Oximetry 90 08/30/24 04:24 Oxygen Delivery Me thod Room Air 08/30/24 04:24 MDM - Altered Mental Status Medical Decision Making 1. Altered Mental Status/Confusion - Patient presents with some confusion during the encounter but according to facility and staff here who know patient well this is his baseline. - Plan: Return patient to their residence/facility as they appear clinically stable. - No acute medical intervention required at this time based on stable vital signs and ability to ambulate. 2. Follow-up - Consider communication with patient's primary care provider or residential facility staff regarding this encounter. - Recommend routine follow-up to ensure patient's safety and continued well-being. No radiology studies performed this visit Discharge Plan Discharge Patient Disposition: Home Clinical Impression: Psychiatric disorder Condition: Stable Prescriptions: No Action lamotrigine 150 mg Tablet 150 mg PO BID@08,20 atorvastatin 10 mg Tablet 10 mg PO DAILY@20 pantoprazole 40 mg Tablet,Delayed Release (Dr/Ec) 40 mg PO DAILY@05 metformin 1,000 mg Tablet 1,000 mg PO BID@05,17 albuterol sulfate [Ventolin HFA] 90 mcg/actuation Hfa Aerosol Inhaler 2 puff inhalation Q6H PRN (Reason: Cough) loratadine 10 mg Tablet 10 mg PO DAILY@08 omega-3 fatty acids-vitamin E 1,000 mg Capsule 1 cap PO BID@08,20 Seroquel 300 mg Tablet 300 mg PO BEDTIME Vitamin B-12 250 mcg Tablet 250 mcg PO DAILY Ventolin HFA 90 mcg/actuation Hfa Aerosol Inhaler 2 puff INHALATION Q6H PRN (Reason: Cough) paroxetine HCl 40 mg Tablet 40 mg PO BEDTIME timolol maleate 0.5 % Drops 1 drp OPHTHALMIC (EYE) BID Rx Instructions: both eyes Seroquel 50 mg Tablet 50 mg PO DAILY Januvia 50 mg Tablet 50 mg PO DAILY Discharge Orders: Discharge ED (Routine); Ordered 08/30/24 Ordered By: Eliceo Astorga Referrals: Sourav Weiss MD [Primary Care Provider, [facility]] Discharge Diet: Advance as tolerated Discharge Activity: Resume usual activity Patient Instructions: Altered Mental Status (ED), Opioid Safety, Pain Management, Patient Portal & Cecil Instructions Activity Restrictions/Additional Instructions: 1. Follow up with PCP for recheck. 2. Elopement precautions. 3. Return for new or worrisome symptoms - vomiting, fever, etc. Print Language: [place] Coding Level of Care Code ED Personnel Counselor for Junior Nina
--- NOTE | 2024-08-30 04:39 | PC.NURSE ---
Pt. brought to ER [facility] with altered mental status. I called and spoke with [facility] nursing staff, who confirms that the altered mental status is his baseline and this is the second time that the patient has got up and left without anyone knowing. I asked the nurse why the patient was sent to ER , or if he had a second complaint , the nurse states not that I know of , but he has a cough that he has had for months , can the doctor look into that? I explained that it would be up to the ER doctor to address the chronic cough, because usually the ER tries to focus on emergency complaints and let the primary care doctor address the chronic complaints that they can then follow up on .
--- NOTE | 2024-08-30 06:44 | PC.NURSE ---
Pt. waiting on medicaid ride home. patient unable to sit in lobby for ride home due to 2 times escaping from [facility].
[2024-08-30 07:46] VITALS: BP 110/77; PULSE 79; O2SAT 90
[2024-08-30 08:47] VITALS: BP 128/72; PULSE 78; O2SAT 95
== END 2024-08-30 08:49 | disposition home or self-care (01) ==
PROVIDERS: Emergency Provider Family Medicine
DX: F99 Mental disorder, not otherwise specified (principal); R41.82 Altered mental status, unspecified; Z79.84 Long term (current) use of oral hypoglycemic drugs; Z79.899 Other long term (current) drug therapy; Z88.0 Allergy status to penicillin; K21.9 Gastro-esophageal reflux disease without esophagitis; E11.9 Type 2 diabetes mellitus without complications; F17.210 Nicotine dependence, cigarettes, uncomplicated
CPT/HCPCS: 99281

== ENCOUNTER 2025-01-08 13:04 | Emergency (ER) | payer MEDICARE, MEDICAID, SELFPAY ==
[2025-01-08 13:12] VITALS: BP 174/87; PULSE 81; RESP 16; TEMP 36.7; O2SAT 98; BMI 22.1
--- NOTE | 2025-01-08 13:15 | XR_ITS ---
WS: [id number] XR chest 1V portable [id number] REASON FOR EXAM: ams FINDINGS: Chest is unchanged compared to the examination of 08/27/2024. The heart and the mediastinum are within normal limits. Elevation of the right hemidiaphragm with redundant colon interposition. Calcified granulomas disease bilaterally. No acute pulmonary parenchymal or pleural abnormality. Mild thoracic degenerative spondylosis. XR/XR chest 1V portable [id number] IMPRESSION: Stable chest without acute abnormality.
--- NOTE | 2025-01-08 13:15 | ECG_ITS ---
[facility] Test Date: 2025-01-08 Pat Name: Paul Glasgow Department: Room: Gender: Male Rn Advice: : 1955 Requested By: Koko Da Silva Order Number: [id number] Marco MD: Adan Jones M.D. Measurements Intervals [place] Rate: 80 P: 52 TX: 199 QRS: -17 QRSD: 108 T: 101 QT: 349 QTc: 403 Interpretive Statements SINUS RHYTHM NONSPECIFIC T-WAVE ABNORMALITY Compared to ECG 08/27/2024 19:23:02 T-wave abnormality now present Sinus tachycardia no longer present Incomplete right bundle-branch block no longer present Left ventricular hypertrophy no longer present ST (T wave) deviation no longer present Myocardial infarct finding no longer present Electronically Signed On 01-08-2025 23:54:02 DEVELOPMENT INTERN by Adan Jones M.D. [email or web address]
--- NOTE | 2025-01-08 13:15 | CTR_ITS ---
PROCEDURE INFORMATION: Exam: CT Head Without Contrast Exam date and time: 01/08/2025 1:29 PM Age: 69 years old Clinical indication: Altered mental status/memory loss; Additional info: AMS TECHNIQUE: Imaging protocol: Computed tomography of the head without contrast. Radiation optimization: All CT scans at this facility use at least one of these dose optimization techniques: automated exposure control; mA and/or kV adjustment per patient size (includes targeted exams where dose is matched to clinical indication); or iterative reconstruction. COMPARISON: 1. CT head wo con* [id number] 08/27/2024 7:[address] head wo con* [id number] 08/10/2024 4:10 PM RADIATION DOSE METRICS: Total DLP (mGy-cm): 1348.9 FINDINGS: Brain: Scattered dural calcification again noted. A couple of small calcifications in each dentate nucleus of each cerebellar hemisphere unchanged from previous exams. Mild prominence of sulci again noted. No abnormal extra-axial fluid collection or midline shift. No acute intracranial hemorrhage. Some chronic small-vessel ischemic change noted of periventricular regions and subcortical white matter mainly frontal lobes with stable appearance compared to previous. No acute ischemic change noted. Cerebral ventricles: Minimal prominence of the lateral and 3rd ventricles with stable appearance compared to previous exams. No ventriculomegaly. Paranasal sinuses: 9 mm mucous retention cyst or polyp medial aspect right maxillary antrum. No significant mucosal thickening visualized paranasal sinuses. No air-fluid levels. Mastoid air cells: Mastoid air cells and middle ear cavities appear grossly unremarkable. Findings compatible with cerumen in each external auditory canal similar to previous. Orbital cavities: Globes appear intact. Findings compatible with bilateral lens replacements. Bones: No acute skull fracture. Soft tissues: No scalp hematoma noted. Vasculature: Small amount atherosclerotic calcification anterior circulation. Other findings: No radiopaque foreign body noted. CT/CT head wo con* [id number] IMPRESSION: 1. No acute intracranial process demonstrated. 2. No gross ventriculomegaly or mass effect. 3. Some chronic small-vessel ischemic change again noted. 4. Stable appearance of brain CT compared to previous exam.
--- NOTE | 2025-01-08 13:32 | ED_ITS ---
HPI - Altered Mental Status 2 General: Chief Complaint: Altered Mental Status Stated Complaint: AMS Source: patient and EMS Mode of arrival: EMS History of Present Illness: 69-year-old male is [place] stating been more aggressive than usual and having some confused behavior. Patient here has been cooperative he is answering all my questions appropriately is ANO x 3 denies any pain anywhere denies any recent illness. Related Data Home Medications ?Medication ?Instructions ?Recorded ?Confirmed atorvastatin 10 mg tablet 10 mg PO DAILY@06/01/2003/10/24 lamotrigine 150 mg tablet 150 mg PO BID@08,06/01/20 01/08/25 pantoprazole 40 mg tablet,delayed 40 mg PO DAILY@01/08/25 release albuterol sulfate 90 mcg/actuation 2 puff inhalation Q 6H PRN Cough 02/23/22 01/08/25 aerosol inhaler (Ventolin HFA) cyanocobalamin (vitamin B-12) 250 250 mcg PO DAILY 06/1201/08/25 mcg tablet (Vitamin B-12) paroxetine HCl 40 mg tablet 40 mg PO BEDTIME 02/23/22 01/08/25 timolol maleate 0.5 % eye drops 1 drp ophthalmic (eye) BID 02/23/22 01/08/25 metformin 500 mg tablet 500 mg PO DAILY 01/08/25 quetiapine 100 mg tablet 100 mg PO BEDTIME 01/08/25 1 03/10/24 Allergies Allergy/AdvReac Type Severity Reaction Status Date / Time Penicillins Allergy ALGY-Rash Verified 06/25/20 14:48 [facility] ED 2 [facility]: Medical History (Updated 01/08/25 @ 14:58 by Koko Da Silva MD) GERD (gastroesophageal reflux disease) DM type 2 (diabetes mellitus, type 2) Schizophrenia Post-traumatic organic mental disorder Seizure disorder Acute calculous cholecystitis Surgical History Hx of appendectomy Family History Other No significant family history Social History Smoking and tobacco/nicotine status: current every day tobacco/nicotine user cigarettes Packs smoked per day: 0.25 Alcohol intake: former Substance/Drug Use: never Lives independently: No Household members: other Housing: Other Details: shelter Marital status: Number of children: 2 Current occupational status: disabled Physical Exam 2 Const: COMMON NORMALS: no acute distress, patient oriented x3 and healthy appearing HENMT: COMMON NORMALS: normocephalic and atraumatic HEAD & SCALP: n ormocephalic and atraumatic Neck/C-Spine: COMMON NORMALS: full ROM and supple Chest: COMMONS NORMALS: normal inspection of the chest and normal palpation of entire chest wall Resp: COMMON NORMALS: normal respiratory effort, No retractions, No use of accessory muscles and clear to auscultation bilaterally AUSCULTATION: clear to auscultation bilaterally Cardio: COMMON NORMALS: regular rate, regular rhythm and No murmurs present (Cardio) RATE: regular rate RHYTHM: regular rhythm GI: COMMON NORMALS: Normal to inspection, nondistended, normoactive bowel sounds present, Soft to palpation, non-tender and no masses PALPATION: Yes Soft to palpation Extremity: COMMON NORMALS: normal to inspection and full ROM Neuro: COMMON NORMALS: patient oriented x3, moves all extremities and no focal motor deficits Psych: COMMON NORMALS: mental status grossly normal, Normal thought process present and cooperative THOUGHT PROCESS: Normal thought process present Skin: COMMON NORMALS: no rashes or lesions noted and no wounds GENERAL SKIN EXAM: no rashes or lesions noted Course 2 Vital Signs: Vital signs: Vital Signs Temperature 98.1 F 01/08/25 13:12 Pulse Rate 81 01/08/25 16:14 Respiratory Rate 16 01/08/25 13:12 Blood Pressure 179/98 01/08/25 16:14 Pulse Oximetry 96 01/08/25 16:14 Oxygen Delivery Az thod Room Air 01/08/25 14:18 MDM - Altered Mental Status Medical Decision Making 69-year-old male presents here [facility] along with some altered mental status there. Differential includes CVA, UTI, infection. Patient here has been calm cooperative has not been agitated here patient's answering all my questions appropriately here with no focal deficits no signs of CVA CT head showed no acute abnormality chest x-ray interpreted by me showed no acute normality. EKG showed normal sinus rhythm heart rate [address] elevation QRS 108 QTc 385. His blood work here showed no significant abnormalities. Feel he stable for discharge back to the [facility] at this time. Medical Records I reviewed the patient's medical records. Lab Data I reviewed the patient's lab results. 01/08/25 13:51 01/08/25 13:51 Radiology Impressions Chest X-Ray 01/08/25 13:15 IMPRESSION: Stable chest without acute abnormality. Head CT 01/08/25 13:15 IMPRESSION: 1. No acute intracranial process demonstrated. 2. No gross ventriculomegaly or mass effect. 3. Some chronic small-vessel ischemic change again noted. 4. Stable appearance of brain CT compared to previous exam. Laboratory Results WBC 7.71 10^3/uL (3.29-11.43) 01/08/25 13:51 RBC 4.64 10^6/uL (3.85-5.65) 01/08/25 13:51 Hgb 14.50 g/dL (11.27-16.99) 01/08/25 13:51 Hct 44.2 % (37-53) 01/08/25 13:51 MCV 95.3 fl (82-101) 01/08/25 13:51 MCH 31.3 pg (27-33) 01/08/25 13:51 MCHC 32.8 g/dL (30-55) 01/08/25 13:51 RDW 12.9 % (12.1-15.1) 01/08/25 13:51 Plt Count 213 10^3/cmm (157-399) 01/08/25 13:51 MPV 9.7 fL (7.4-10.4) 01/08/25 13:51 Neut % (Auto) 76.5 % 01/08/25 13:51 Lymph % (Auto) 16.5 % 01/08/25 13:51 [place] % (Auto) 4.9 % 01/08/25 13:51 Eos % (Auto) 1.4 % 01/08/25 13:51 Baso % (Auto) 0.4 % 01/08/25 13:51 Neut # (Auto) 5.90 10^3/uL (1.8-7.7) 01/08/25 13:51 Lymph # (Auto) 1.3 10^3/uL (0.8-4.8) 01/08/25 13:51 [place] # (Auto) 0.4 10^3/uL (0.2-0.9) 01/08/25 13:51 Eos # (Auto) 0.1 10^3/uL (0.0-0.8) 01/08/25 13:51 Baso # (Auto) 0.0 10^3/uL (0.0-0.1) 01/08/25 13:51 Nucleated RBC % (auto) 0 % 01/08/25 13:51 Nucleated RBCs # 0.0 /100WBC 01/08/25 13:51 Sodium 138 mmol/L (136-145) 01/08/25 13:51 Potassium 4.8 mmol/L (3.5-5.1) 01/08/25 13:51 Chloride 101 mmol/L (98-107) 01/08/25 13:51 Carbon Dioxide 27 mmol/L (22-29) 01/08/25 13:51 Anion Gap 14.8 (5-19) 01/08/25 13:51 BUN 12 mg/dL (8-23) 01/08/25 13:51 Creatinine 1.0 mg/dL (0.7-1.2) 01/08/25 13:51 GFR Calculation 74.5 mL/min (90-130) L 01/08/25 13:51 Glucose 146 mg/dL (65-115) H 01/08/25 13:51 Calculated Osmolality 288 mOsm/kg (285-295) 01/08/25 13:51 Calcium 9.7 mg/dL (8.5-10.5) 01/08/25 13:51 Total Bilirubin 0.3 mg/dL (0.15-1.2) 01/08/25 13:51 AST 13 U/L (0-40) 01/08/25 13:51 ALT 7 U/L (0-41) 01/08/25 13:51 Alkaline Phosphatase 137 U/L (40-130) H 01/08/25 13:51 Total Protein 7.1 g/dL (6.6-8.7) 01/08/25 13:51 Albumin 4.2 g/dL (3.5-5.2) 01/08/25 13:51 Globulin 2.9 g/dL (1.3-4.6) 01/08/25 13:51 Urine Color Yellow (Yellow) 01/08/25 14:33 Urine Appearance Clear (CLEAR) 01/08/25 14:33 Urine pH 5.5 (5-7) 01/08/25 14:33 Ur Specific [place] 1.011 (1.005-1.030) 01/08/25 14:33 Urine Protein 1+ (Negative) A 01/08/25 14:33 Urine Glucose (UA) Negative (Normal) 01/08/25 14:33 Urine Ketones Negative (Negative) 01/08/25 14:33 Urine Blood Trace (Negative) A 01/08/25 14:33 Urine Nitrate Negative (Negative) 01/08/25 14:33 Urine Bilirubin Negative (Negative) 01/08/25 14:33 Urine Urobilinogen 1.0 mg/dL (Negative) 01/08/25 14:33 Ur Leukocyte Esterase Negative (Negative) 01/08/25 14:33 Urine RBC 0-2 /hpf (0-2) 01/08/25 14:33 Urine WBC 0-5 /hpf (0-5) 01/08/25 14:33 Ur Squamous Epith Cells 0-5 /hpf (0-5) 01/08/25 14:33 Amorphous Sediment Not Reportable 01/08/25 14:33 Urine Bacteria None seen /hpf (NONE) 01/08/25 14:33 Hyaline Casts 0.40 /lpf 01/08/25 14:33 All radiology interpretation(s) finalized by discharge EKG Data EKG 1: I personally reviewed and interpreted this EKG as follows: EKG interpretation date: 01/08/25 EKG interpretation time: 13:51 Interpretation: nsr hr [address] elevation qrs 108 qtc 385 Discharge Plan Discharge Patient Disposition: Home Clinical Impression: Confusion, Aggressive behavior Condition: Stable Prescriptions: No Action lamotrigine 150 mg Tablet 150 mg PO BID@08,20 atorvastatin 10 mg Tablet 10 mg PO DAILY@20 pantoprazole 40 mg Tablet,Delayed Release (Dr/Ec) 40 mg PO DAILY@05 metformin 500 mg tablet 500 mg PO DAILY quetiapine 100 mg tablet 100 mg PO BEDTIME cyanocobalamin (vitamin B-12) [Vitamin B-12] 250 mcg Tablet 250 mcg PO DAILY albuterol sulfate [Ventolin HFA] 90 mcg/actuation Hfa Aerosol Inhaler 2 puff INHALATION Q6H PRN (Reason: Cough) paroxetine HCl 40 mg Tablet 40 mg PO BEDTIME timolol maleate 0.5 % Drops 1 drp OPHTHALMIC (EYE) BID Rx Instructions: both eyes Discharge Orders: Discharge ED (Routine); Ordered 01/08/25 Ordered By: Koko Da Silva Discharge Diet: Advance as tolerated Discharge Activity: Resume usual activity Patient Instructions: Altered Mental Status (ED) Print Language: Croatian Coding Level of Care Code ED Sales Associate for Junior Nina
[2025-01-08 14:01] LABS: Hematocrit 44.2 % (37-53); Hemoglobin 14.50 g/dL (11.27-16.99); Mean Corpuscular HGB Conc 32.8 g/dL (30-55); Mean Corpuscular Hemoglobin 31.3 pg (27-33); Mean Corpuscular Volume 95.3 fl (82-101); Nucleated Red Blood Cells % 0 %; Platelet Count 213 10^3/cmm (157-399); Red Blood Count 4.64 10^6/uL (3.85-5.65); White Blood Count 7.71 10^3/uL (3.29-11.43)
[2025-01-08 14:18] VITALS: BP 156/98; PULSE 82; O2SAT 95
--- NOTE | 2025-01-08 14:25 | PC.PHAR ---
Pt is from [facility]
[2025-01-08 14:38] LABS: Alanine Aminotransferase 7 U/L (0-41); Albumin Level 4.2 g/dL (3.5-5.2); Alkaline Phosphatase 137 U/L (40-130); Anion Gap 14.8 (5-19); Aspartate Amino Transferase 13 U/L (0-40); Blood Urea Nitrogen 12 mg/dL (8-23); Calcium 9.7 mg/dL (8.5-10.5); Carbon Dioxide 27 mmol/L (22-29); Chloride 101 mmol/L (98-107); Globulin 2.9 g/dL (1.3-4.6); Glucose 146 mg/dL (65-115); Osmolality Calculated 288 mOsm/kg (285-295); Potassium 4.8 mmol/L (3.5-5.1); Sodium 138 mmol/L (136-145); Total Protein 7.1 g/dL (6.6-8.7)
[2025-01-08 14:44] LABS: Glucose Urine UA Negative (Normal); Nitrate Urine Negative (Negative); Specific Gravity, Urine 1.011 (1.005-1.030)
[2025-01-08 14:49] LABS: Add Urine Microscopic? YES
--- NOTE | 2025-01-08 15:23 | PC.NURSE ---
Call [facility] assisted living, spoke to Susi prep manager, Tressa RN also spoke to Susi in regards to pt dc back, no transport available. Settign up medicaid ride home.
--- OUTSIDE RECORDS SUMMARY | 2025-01-08 15:45 | XMS_ITS | Clinical Summary ---
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] series) 2032 Medical Devices Implanted Type Area Hydroelectric Production Technician Device Identifier Shelf Expiration Date Model / Serial / Lot Lens Io Tecnis 1pc 17.0 [id number] - [id number] Implanted:Qty: 1 on 01/14/2019 by Quinn Hamilton MD at [facility] Right: Eye [employer] 11/23/2022 [id number] / [id number] / Lens Io Tecnis 1pc 16.5 [id number] - [id number] Implanted:Qty: 1 on 01/28/2019 by Quinn Hamilton MD at [facility] Left: Eye [employer] 11/15/2022 [id number] / [id number] / Insurance MEDICARE PART A AND B [place] Advance Directives For more information, please contact: [phone] Documents on File Type Date Recorded Patient Travograph Operator Expl anation Advance Directive POA 01/14/2019 10:53 AM Advance Directive POA * Full Code (Latest Code Status on File) Date Activated Date Inactivated Comments 01/28/2019 10:23 AM 01/28/2019 2:18 PM * Full Code Date Activated Date Inactivated Comments 01/14/2019 10:12 AM 01/14/2019 5:52 PM
--- OUTSIDE RECORDS SUMMARY | 2025-01-08 15:45 | XMS_ITS | Clinical Summary ---
Author Organization [facility] Address [address] [place]: Epic Prelude ADT ALISA CERDA [address] Care Team Providers Care Center Director Lead Teacher Name Role Phone Unavailable Primary Care Provider Unavailabl e Allergies No known active allergies Medications OTHER PREDNISOLONE 1%/ GATIFLOXACIN 0.5%/ BROMFENAC 0.07%. Start 3 days before surgery 1 drop 3 times a day in the surgical eye for 24 days 3.5 Each 1 9 Active [id number] -fish oil 1,000 mg Capsule Take by [...] on file Legal Sex Male 11:42 PM CIGARETTE EXAMINER Gender Identity Not on file Sexual Orientation Not on file Last Filed Vital Signs Vital Sign Reading Time Taken Comments Blood Pressure 116/58 01/28/2019 1:01 PM CIGARETTE EXAMINER Pulse 77 01/28/2019 1:01 PM CIGARETTE EXAMINER Temperature 36.4 C (97.6 F) 01/28/2019 11:58 AM CIGARETTE EXAMINER Respiratory Rate 18 01/28/2019 11:58 AM CIGARETTE EXAMINER Oxygen Saturation - - Inhaled Oxygen Concentration - - Weight 76.2 kg (168 lb) 01/28/2019 1:01 PM CIGARETTE EXAMINER Height 182.9 cm (6') 01/28/2019 1:01 PM CIGARETTE EXAMINER Body Mass Index 22.78 01/28/2019 1:01 PM CIGARETTE EXAMINER Plan of Treatment Health Maintenance Due Date [...] series) 2032 Medical Devices Implanted Type Area Stamp Analyst Device Identifier Shelf Expiration Date Model / Serial / Lot Lens Io Tecnis 1pc 17.0 - [id number] Implanted:Qty: 1 on 01/14/2019 by Quinn Hamilton MD Eye Right: Eye [employer] 11/23/2022 [id number] / [id number] / Lens Io Tecnis 1pc 16.5 [id number] - [id number] Implanted:Qty: 1 on 01/28/2019 by Quinn Hamilton MD Eye Left: Eye [employer] 11/15/2022 [id number] / [id number] / Advance Directives For more information, please contact: [phone] Documents on File Type Date Recorded Patient Refrigeration Installer Expl anation Advance Directive POA 01/14/2019 10:54 AM Advance Directive POA
[2025-01-08 16:14] VITALS: BP 179/98; PULSE 81; O2SAT 96
== END 2025-01-08 16:17 | disposition home or self-care (01) ==
PROVIDERS: Emergency Provider Emergency Medicine
DX: R41.0 Disorientation, unspecified (principal); F91.8 Other conduct disorders; Z79.84 Long term (current) use of oral hypoglycemic drugs; F17.210 Nicotine dependence, cigarettes, uncomplicated; E11.9 Type 2 diabetes mellitus without complications
CPT/HCPCS: 36415; 70450; 71045; 80053; 81001; 85025; 93005; 99285